=== PATIENT | male | born 1960 | race Caucasian/White ===

== ENCOUNTER 2023-09-25 09:15 | Outpatient (OUT) | payer OTHER, SELFPAY ==
--- OUTSIDE RECORDS SUMMARY | 2023-09-25 09:30 | XMS_ITS | CCD ---
Author Organization [facility] CliniSyoh Care Team Providers Care Floor Surfacer Name Role Phone PHYSICIAN, DEFAULT Unavailable Unavailable PHYSICIAN, DEFAULT Unavailable Unavailable HOY, MICHAEL Unavailable Unavailable PHYSICIAN, DEFAULT Unavailable Unavailable PHYSICIAN, DEFAULT Unavailable Unavailable HOY, MICHAEL Unavailable Unavailable DAKOTA, LOLA E Unavailable Unavailable HOY, MICHAEL Unavailable Unavailable DAKOTA, LOLA E Unavailable Unavailable HOY, MICHAEL Unavailable Unavailable HOY, DR RODRIGUEZ Admitting Unavailable HOY, DR RODRIGUEZ Attending Unavailable HOY, DR RODRIGUEZ Consulting Unavailable HOY, DR RODRIGUEZ Primary Care Unavailable HOY, DR RODRIGUEZ Primary Care Unavailable HOY, DR RODRIGUEZ Admitting Unavailable HOY, DR RODRIGUEZ Attending Unavailable HOY, DR RODRIGUEZ Consulting Unavailable REQUEST, DR HERBERT LISTED Attending Unavaila ble REQUEST, DR HERBERT LISTED Consulting Unavaila ble REQUEST, DR HERBERT LISTED Admitting Unavaila ble HOY, DR RODRIGUEZ Primary Care Unavailable SIGIFREDO CHRISTENSEN Attending Unavailable SIGIFREDO CHRISTENSEN Consulting Unavailable SIGIFREDO CHRISTENSEN Admitting Unavailable HOY, DR RODRIGUEZ Primary Care Unavailable MOUKARBEL, DR AKBAR Admitting Unavailable MOUKARBEL, DR AKBAR Attending Unavailable HOY, DR RODRIGUEZ Primary Care Unavailable HOY, DR RODRIGUEZ Admitting Unavailable HOY, DR RODRIGUEZ Attending Unavailable HOY, DR RODRIGUEZ Primary Care Unavailable Allergies Allergy Classification Reported Allergen(s) Allergy Type Date of Onset Reaction(s) Facility (1 source) acetaminophen Drug Allergy 08-15-2009 [facility] Repository (2 sources) Penicillins Drug allergy (disorder) 08-15-2009 [facility] Repository (1 source) Acetaminophen Drug Allergy 01-22-2015 [facility] Repository Problems Active Problems Problem Classification Problem Date Documented Da te Episodic/Chronic Unclassified (1 source) Unknown / UNK(Unknown) Onset: 09-22-2016 Past or Other Problems Problem Classification Problem Date Documented Da te Episodic/Chronic Immunizations and screening for infectious disease (4 sources) Contact with and (suspected) exposure to other viral communicable diseases; Translations: [CONTCT EXPS OTH VIRL COMMUNICABL DZ] Onset: 12-26-2019 Episodic Nonspecific chest pain (1 source) Chest pain, unspecified; Translations: [CHEST PAIN UNSPECIFIED] Onset: 12-29-2019 Episodic Unclassified (1 source) E78.5 I10 Z01.818 Onset: 09-23-2016 Results Test Name Value Interpretation Reference Range Facility GLYCOHEMOGLOBIN A1Con 2020 ADA RECOMMENDATION ADA THERAPEUTIC TARG ET 6.0 - 7.0 ACTION SUGGESTED > 7.0 Normal [facility] Comment on above: Performed By: #### A 1C #### [facility] [address] [place] [address] Dr. Therese Loera Glucose [Mass/Vol] 131 mg/dL Normal [facility] Comment on above: Performed By: #### A 1C #### [facility] [address] [place] [address] Dr. Therese Loera HbA1c (Bld) [Mass fraction] 6.2 % Critically high <=6.0 [facility] Comment on above: Performed By: #### A 1C #### [facility] [address] [place] [address] Dr. Therese Loera LIPID PROFILEon 11-05-2020 CHOL-HDL RATIO NORM SEE BELOW Normal [facility] Comment on above: Result Comment: 3.3 - 4.4 LOW RISK 4.4 - 7.1 AVERAGE RISK 7.1 - 11.0 MODERATE RISK >11.0 HIGH RISK Performed By: #### L IPID #### [facility] [address] [place] [address] Dr. Therese Loera Cholesterol [Mass/Vol] 148 mg/dL Normal <=200 [facility] Comment on above: Performed By: #### L IPID #### [facility] [address] [address] [address] Therese Loera Cholesterol in HDL [Mass/Vol] 42 mg/dL Normal [facility] Comment on above: Performed By: #### L IPID #### [facility] [address] [address] [address] Therese Loera Cholesterol in LDL [Mass/Vol] 89.8 mg/dL Normal [facility] Comment on above: Performed By: #### L IPID #### [facility] [address] [address] [address] Therese Loera Cholesterol.total/Ch olesterol in HDL [Mass ratio] 3.5 {ratio} Normal [facility] Comment on above: Performed By: #### L IPID #### [facility] [address] [address] [address] Therese Loera HDL NORMAL > or = 60 mg/dl - LO W CARDIOVASCULAR RISK <40 mg/dl - HIGH CARDIOVASCULAR RISK Normal [facility] Comment on above: Performed By: #### L IPID #### [facility] [address] [place] [address] Dr. Therese Loera LDL CALC NORMAL SEE BELOW Normal [facility] Comment on above: Result Comment: <100 mg/dl OPTIMAL 100 - 129 mg/dl NEAR OR ABOVE OPTIMAL 130 - 159 mg/dl BORDERLINE HIGH 160 - 189 mg/dl HIGH >190 mg/dl VERY HIGH Performed By: #### L IPID #### [facility] [address] [address] [address] Therese Loera Triglyceride [Mass/Vol] 81 mg/dL Normal <=150 [facility] Comment on above: Performed By: #### L IPID #### [facility] [address] [place] [address] Dr. Therese Loera VLDL CALC 16.2 mg/dL Normal [facility] Comment on above: Performed By: #### L IPID #### [facility] [address] [place] [address] Dr. Therese Loera COVID-19 PCRon 12-28-2019 SARS-CoV-2 (COVID-19) RNA KOJO+probe Ql (Unsp spec) Not detected Normal Not Detected [facility] Comment on above: Result Comment: This nucleic acid amplification test was developed and its performance characteristics determined by [employer]. Nucleic acid amplification tests include PCR and TMA. This test has not been FDA cleared or approved. This test has been authorized by FDA under an Emergency Use Authorization (EUA). This test is only authorized for the duration of time the declaration that circumstances exist justifying the authorization of the emergency use of in vitro diagnostic tests for detection of SARS-CoV-2 virus and/or diagnosis of COVID-19 infection under section 564(b)(1) of the Act, 21 U.S.C. 360bbb-3(b) (1), unless the authorization is terminated or revoked sooner. When diagnostic testing is negative, the possibility of a false negative result should be considered in the context of a patient's recent exposures and the presence of clinical signs and symptoms consistent with COVID-19. An individual without symptoms of COVID-19 and who is not shedding SARS-CoV-2 virus would expect to have a negative (not detected) result in this assay. Performed By: #### C VDPCR #### [facility] [address] [place] [address] Roberto Laura Coding Summary.on 11-11-2019 Coding Summary. CODING DATE: 11/11/2019 FINAL [facility] STATUS: Home (Routine DC) PAYOR: [facility] [place] ADMIT DX: REASON FOR VISIT DX: Z01.812 Encounter for preprocedural laboratory examination FINAL DX: PRINCIPAL: Z01.812 Encounter for preprocedural laboratory examination SECONDARY: Z11.59 Encounter for screening for other viral diseases PYMT PROC APC STAT DESCRIPTION DOCTOR NAME DATE NOTE: The code number assigned matches the documented diagnosis and / or procedure in the patient's chart. However, the narrative phrase printed from the coding software may appear abbreviated, or result in slightly different terminology. Coded By: Sheyla Appiah CphT Date Saved: 11/11/2019 03:57 pm Normal [facility] Coding Summary.on 10-28-2019 Coding Summary. CODING DATE: 10/28/2019 FINAL [facility] STATUS: Home (Routine DC) PAYOR: [facility] [place] APC DESCRIPTION 5311 Level 1 Lower GI Procedures ADMIT DX: REASON FOR VISIT DX: Z12.11 Encounter for screening for malignant neoplasm of colon FINAL DX: PRINCIPAL: Z12.11 Encounter for screening for malignant neoplasm of colon SECONDARY: I25.10 Atherosclerotic heart disease of [place] coronary artery without angina pectoris Z79.82 shelter (current) use of aspirin PYMT PROC APC STAT DESCRIPTION DOCTOR NAME DATE 59793 5311 T Colonoscopy, flexible; Manish TINAJERO MD 10/21/2019 diagnostic, including collection of specimen(s) by brushing or washing, when performed (separate procedure) 09681 Anesthesia for lower Anne Jr. Macario DEVLIN 10/21/2019 intestinal endoscopic procedures, endoscope introduced distal to duodenum; screening colonoscopy NOTE: The code number assigned matches the documented diagnosis and / or procedure in the patient's chart. However, the narrative phrase printed from the coding software may appear abbreviated, or result in slightly different terminology. Revised Coded By: Maria Dolores Alba Revised Date Saved: 10/28/2019 12:57 pm [facility] IntraOperative Documentson 0 10-27-2019 IntraOperative Documents [id number]. 00CD:127 [facility] Postoperative Documentson Postoperative Documents [id number]#1. 00CD:127 [facility] Main OR Intraoperative Recor don 10-25-2019 Main OR Intraoperative Record IntraOp Document Type FT Summary Primary Physician: Manish TINAJERO MD Finalized Date/Time: 10/25/19 07:07:35 Pt. Name: FORD ROMEO/Sex: 1960 Male Med Rec #: [id number] Physician: Manish TINAJERO MD Financial #: [id number] Pt. Type: O Room/Bed: / Admit/Disch: 10/21/19 09:20:40 - 10/21/19 23:59:59 Institution: Case Times FT Entry 1 Patient Times In Room 10/21/19 10:32:00 Out Room 10/21/19 10:58:00 Procedure Times Start 10/21/19 10:38:00 Stop 10/21/19 10:56:00 Anesthesia Times Start 10/21/19 10:32:00 Stop 10/21/19 10:58:00 Time at [place] 10/21/19 10:49:00 Last Modified By: Joanna MARTINES, Jo Galvin 10/21/19 10:58:28 General Comments: 10/25/2019 Chart opened to aly and send charges F Jack CORDON Case Attendance FT Entry 1 Entry 2 Entry 3 Case Attendee Leslie Quevedo MD, Manish Marshall RN, Jo Galvin Role Performed Anesthesiologist Surgeon - Primary Elevator Repairer Apprentice - Primary Supervisor Calibration Time In 10/21/19 10:32:00 10/21/19 10:32:00 10/21/19 10:32:00 Time Out 10/21/19 10:58:00 10/21/19 10:58:00 10/21/19 10:58:00 Procedure COLONOSCOPY(.) COLONOSCOPY(.) COLONOSCOPY(.) Comments Dr. Anne supervising Dr. Hinson supervising procedure. procedure. Last Modified By: Joanna RN, Jo Marshall RN, Jo Jarquin RN 10/21/19 10:58:29 10/21/19 10:58:29 10/21/19 10:58:29 Entry 4 Case Attendee Eloisa Villalpando CST Role Performed Scrub - Primary Time In 10/21/19 10:32:00 Time Out 10/21/19 10:58:00 Procedure COLONOSCOPY(.) Comments Last Modified By: Jo Marshall RN 10/21/19 10:58:29 Perioperative Protocols FT Pre-Care Text: Implements protective measures prior to operative or invasive procedure, confirms identity before the operative or invasive procedure, verifies operative procedure, surgical site, and laterality Entry 1 Procedure(s) COLONOSCOPY(.) Patient Identity Birthday, ID Band Verified (select at Check, Patient least 2): Participation Consents / H and P Anesthesia Consent, Operative Site N/A Verified HandP, Surgery/Procedure Marking Verified Consent Surgical Site No Laterality Verified n/a Verified Procedure Verified Yes Correct Patient Yes Position Verified Availability Equipment, Medication Prep Dry n/a Verified (If Applicable) PreOp Antibiotic No Time Out Leslie Quevedo, Given Participants GRABIEL MAHONEY, Joanna Fields RN, Irasema Mercer CST, Kimberly A Time Out Complete 10/21/19 10:35:00 Outcomes Met? Yes Last Modified By: Jo Marshall RN 10/21/19 10:37:14 Post-Care Text: The patient is free from signs and symptoms of injury caused by extraneous objects Allergy Information FT Pre-Care Text: Verifies allergies Entry 1 Allergies Reviewed? Yes Allergies Reviewed Self/Patient With Outcomes Met? Yes Last Modified By: Jo Marshall RN 10/21/19 10:38:28 Post-Care Text: The patient received appropriate medication(s) safely administered during the perioperative period Surgical Procedures FT Entry 1 Procedure Description Procedure COLONOSCOPY Modifiers . Surgeon Description Colonoscopy Primary Procedure Yes Primary Surgeon Manish TINAJERO MD 10/21/19 10:38:00 Stop 10/21/19 10:56:00 Anesthesia Type General Surgical Service General Wound Class 2 - Clean-Contaminated Last Modified By: Jo Marshall RN 10/21/19 10:56:13 General Case Data FT Pre-Care Text: Classifies surgical wound, implements aseptic technique, initiates traffic control Entry 1 Case Information OR ENDO 2 FT Case Level Level 2 Wound Class 2 - Clean-Contaminated Specialty General ASA Class 3 Preop Diagnosis SCREENING Postop Same As Preop No Postop Diagnosis Normal colonoscopy Outcomes Met? Yes Last Modified By: Jo Marshall RN 10/21/19 10:56:30 Post-Care Text: The patient is free from signs and symptoms of infection Skin Assessment (Pre Procedure) FT Pre-Care Text: Implements protective measures to prevent skin/ tissue injury due to thermal or mechanical sources Evaluates for signs and symptoms of physical injury to skin and tissue Entry 1 Skin Integrity Intact, [place], Warm, and Skin Abnormality No Dry Outcomes Met? Yes Last Modified By: Jo Marshall RN 10/21/19 10:38:58 Post-Care Text: The patient is free from signs and symptoms of injury caused by extraneous objects Patient Positioning FT Pre-Care Text: Identifies physical alterations that require additional precautions for procedure-specific positioning, verifies presence of prosthetics or corrective devices, positions the patient, evaluates the patient for signs and symptoms of injury as a result of positioning Entry 1 Procedure COLONOSCOPY(.) Body Position Lateral, right side up Feet Uncrossed? Yes Left Arm Position Resting at Side Right Arm Position Resting at Side Left Leg Position Extended Right Leg Position Extended Positioning Device Safety Strap, Pillow Unde (more content not included)... Normal [facility] Colonoscopy Procedure Report on 10-21-2019 Colonoscopy Procedure Report Date of Surgery: 10/21/2019 SURGEON: Manish Tinajero M.D. PREOPERATIVE DIAGNOSIS: Colorectal screening POSTOPERATIVE DIAGNOSIS: Redundant colon but normal OPERATION: Colonoscopy to cecum ANESTHESIA: Monitored anesthesia care ESTIMATED BLOOD LOSS: Zero INDICATIONS: The patient is a 59-year-old male who presents for colorectal screening. Indications, risks, benefits, alternatives of proceeding with colonoscopy were explained extensively to the patient including risks of bleeding, colon perforation or anesthetic complications. All of his questions were answered. Informed consent was obtained. PROCEDURE: The patient was brought to the Operating Room and placed in the left lateral decubitus position. Monitored anesthesia care was provided. Rectal examination was performed which revealed no masses or blood. The scope was inserted into the anal canal under direct visualization it was advanced. With the aid of abdominal compression and positional changes, it was advanced to the cecum where cecal markings were clearly identified. There was noted to be a good prep with some liquid stool throughout the colon that was partially irrigated clear. Upon withdrawal of the scope, mucosal surfaces were carefully examined. There was noted to be redundancy of the colon with spasm. No mass lesions or polyps. No inflammatory changes or ulcerations. No significant diverticulosis. The scope was retroflexed in the anal canal. There was noted to be some prominent rectal veins. No significant hemorrhoidal disease. The scope was then withdrawn. The patient tolerated the procedure well and was sent to Recovery Room in good condition. Manish Tinajero M.D. gls Dictated: 10/21/2019 #[id number] Typed: 10/21/2019 #[id number] cc: Nargis Yost M.D. [facility] Consenton 10-21-2019 Consent [id number]. 00CD:127 [facility] Consent for Treatmenton Consent for Treatment [id number] 0CD:127 [facility] Discharge Instructionson Discharge Instructions [id number]. 00CD:127 [facility] Inpatient Patient Summaryon 10-21-2019 Inpatient Patient Summary [address] [address] [facility] Clinical Discharge Instructions PERSON INFORMATION Name: FORD ROMEO [facility]#:[id number] PHYSICIANS Admitting Physician: Manish TINAJERO MD Attending Physician: Manish TINAJERO MD PCP: David MAHONEY, Michael Discharge Diagnosis: Encounter for screening for colorectal malignant neoplasm Comment: PATIENT EDUCATION INFORMATION Instructions: Medication Leaflets: Follow up: With: Address: When: Manish TINAJERO [address] [place] [address], [address], [facility] [address] [place] [address] Business (1) , only if needed MEDICATION LIST Medications to Continue with No Changes Other Medications aspirin (aspirin 81 mg Oral EC Tab) 1 Tablets By Mouth every day. atorvastatin (atorvastatin 40 mg Tab) 1 Tablets By Mouth every day. azelastine nasal (azelastine nasal 137 mcg/inh spray) 2 Sprays Nasal Inhalation 2 times a day. in each nostril. fluticasone nasal (Flonase 0.05 mg/inh nasal spray) 1 Sprays Nasal Inhalation 2 times a day. in each nostril. meloxicam (meloxicam 15 mg oral tablet) 1 Tablets By Mouth every day. nitroglycerin (NitroStat 0.4 mg Tab) 1 Tablets Sublingual every 5 minutes as needed Chest pain. olmesartan (olmesartan 40 mg Tab) 1 Tablets By Mouth every day. Comment: Normal [facility] IntraOperative Documentson 0 10-21-2019 IntraOperative Documents [id number]. 00CD:127 Normal [facility] IntraOperative Documents [id number]. 00CD:127 Normal [facility] Main OR PACU I Recordon Main OR PACU I Record PACU Phase I Document Type FT Summary Primary Physician: Manish TINAJERO MD Finalized Date/Time: 10/21/19 15:32:50 Pt. Name: VIRGIEJACKY FORD Concepcion /Sex: 1960 Male Med Rec #: [id number] Physician: Manish TINAJERO MD Financial #: [id number] Pt. Type: O Room/Bed: / Admit/Disch: 10/21/19 09:20:40 - Institution: Case Times PACU I FT Pre-Care Text: Identifies barriers to communication and implements measures to provide psychological support Develops individualized plan of care, and ensures continuity of care Maintains patient's dignity and privacy, and maintains patient confidentiality Identifies and reports philosophical, cultural, and spiritual beliefs and values Identifies individual values and wishes concerning care Implements aseptic technique, and administers prescribed antibiotic therapy and immunizing agents as ordered Evaluates postoperative tissue perfusion Implements thermoregulation measures, and monitors body temperature Evaluates postoperative respiratory status Evaluates postoperative cardiac status Evaluates postoperative neurological status Assesses pain control, collaborated in initiating patient-controlled analgesia and implements alternative methods of pain control Verifies allergies, administers prescribed medications and solutions, evaluates response to medications Entry 1 In PACU I 10/21/19 11:00:00 Discharge from PACU 10/21/19 11:30:00 I Outcomes Met? Yes Last Modified By: Jenny Jeffery RN 10/21/19 15:30:21 Post-Care Text: The patient demonstrates knowledge of the expected response to the operative or invasive procedure The patient's care is consistent with the individualized perioperative plan of care The patient's right to privacy is maintained The patient's value system, lifestyle, ethnicity, and culture are considered, respected, and incorporated into the perioperative plan of care The patient participates in decisions affecting his or her perioperative plan of care The patient is free from signs and symptoms of infection The patient has wound/tissue perfusion consistent with or improved from baseline levels established preoperatively The patient is at or returning to normothermia at the conclusion of the immediate postoperative period The patient's respiratory function is consistent with or improved from baseline levels established preoperatively The patient's cardiovascular status is consistent with or improved from baseline levels established preoperatively The patient's cardiovascular status is consistent with or improved from baseline levels established preoperatively The patient demonstrates and/or reports adequate pain control throughout the perioperative period The patient received appropriate medication(s), safely administered during the perioperative period Acuity Level PACU I FT Entry 1 Start Time 10/21/19 11:00:00 Stop Time 10/21/19 11:30:00 Acuity Level Acuity Level I Last Modified By: Jenny Jeffery RN 10/21/19 15:30:37 Finalized By: Jenny Jeffery RN Document Signatures Signed By: Jenny Jeffery RN 10/21/19 15:30 Jenny Jeffery RN 10/21/19 15:31 Jenny Jeffery RN 10/21/19 15:30 Jenny Jeffery RN 10/21/19 15:32 Normal [facility] Main OR Preoperative Recordo n 10-21-2019 Main OR Preoperative Record Holding Area Document Type FT Summary Primary Physician: Manish TINAJERO MD Finalized Date/Time: 10/21/19 09:51:42 Pt. Name: DAR ROMEOSAMEERO.B./Sex: 1960 Male Med Rec #: [id number] Physician: Manish TINAJERO MD Financial #: [id number] Pt. Type: O Room/Bed: / Admit/Disch: 10/21/19 09:20:40 - Institution: Case Times Holding FT Pre-Care Text: Verifies consent for planned procedure, identifies individual values and wishes concerning care, includes family members in perioperative teaching Secures patient's records' belongings, and valuables, maintains patient's dignity and privacy, and maintains patient confidentiality Entry 1 In Holding 10/21/19 09:22:00 Outcomes Met? Yes Last Modified By: Jo Marshall RN 10/21/19 09:22:54 Post-Care Text: The patient participates in decisions affecting his or her perioperative plan of care The patient's right to privacy is maintained Surgery Checklist FT Entry 1 Patient Birthday, ID Band Procedure History and Physical, Identification: Check, Patient Verification: Surgical Consent, With Participation Patient NPO after Midnight: Yes Results Reviewed n/a Comments: Personal Items: Jewelry Personal Items Watch, metal in neck Comment: Complaints of Pain: No Pain Comment: Denies Operative Site n/a Availability Equipment Marking: Verified: Does Patient Smoke No Patient states Yes Comment - Adult Ayesha postop adult Supervision supervision available Case Cancelled in No Holding Area see comments below for reason Last Modified By: Jo Marshall RN 10/21/19 09:32:53 General Comments: Pt completed prep yesterday and remained NPO since midnight/REMIRN Finalized By: Jo Marshall RN Document Signatures Signed By: Jo Marshall RN 10/21/19 09:51 Normal [facility] Monitor Recordon 10-21-2019 Monitor Record [id number]. 00CD:127 Normal [facility] Outpatient Surgery Discharge Instructionon 10-21-2019 Outpatient Surgery Discharge Instruction [address] [place] [id number] Patient Discharge Instructions PERSON INFORMATION Name: FORD ROMEO Date of : 1960 Current Date: 10/21/2019 11:01:01 PHYSICIANS Admitting Physician: Manish TINAJERO MD Discharge Diagnosis: Encounter for screening for colorectal malignant neoplasm FORD ROMEO has been given the following list of follow-up instructions, prescriptions, and patient education materials: PATIENT FOLLOW-UP INFORMATION Diet: Regular Discharge Activity: Resume normal activities in 24 hours, Arrange for a responsible adult supervision for 24 hours Discharge Restrictions: No driving for 24 hrs, Do not make important decisions for 24 hours, Do not drink alcoholic beverages for 24 hours Call Your Doctor For: Persistent or heavy bleeding, Temperature above 101.5 degrees, Redness, swelling, or pus at operative site, Severe pain at the operative site, Persistent vomiting IF UNABLE TO CONTACT YOUR PHYSICIAN AND YOU FEEL IT IS AN EMERGENCY, GO TO THE NEAREST EMERGENCY ROOM OR CALL 911 [address] WALTER J, have received the attached patient education materials/instructions and have verbalized understanding: May we do a follow up call? Yes No I was present when discharge instructions were given Patient Signature Date Clinican/Nurse Signature ___ Date Follow up: With: Address: When: Manish Nair, [address], [facility] [address] [place] [address] Business (1) , only if needed Pharmacy Information: Thank you for choosing [facility] HERE ARE THE MEDICATION CHANGES THAT OCCURRED DURING YOUR HOSPITAL STAY Medications to Continue with No Changes Other Medications aspirin (aspirin 81 mg Oral EC Tab) 1 Tablets By Mouth every day. atorvastatin (atorvastatin 40 mg Tab) 1 Tablets By Mouth every day. azelastine nasal (azelastine nasal 137 mcg/inh spray) 2 Sprays Nasal Inhalation 2 times a day. in each nostril. fluticasone nasal (Flonase 0.05 mg/inh nasal spray) 1 Sprays Nasal Inhalation 2 times a day. in each nostril. meloxicam (meloxicam 15 mg oral tablet) 1 Tablets By Mouth every day. nitroglycerin (NitroStat 0.4 mg Tab) 1 Tablets Sublingual every 5 minutes as needed Chest pain. olmesartan (olmesartan 40 mg Tab) 1 Tablets By Mouth every day. PATIENT EDUCATION INFORMATION Instructions: Normal [facility] Patient Education - Texton 0 10-21-2019 Patient Education - Text [facility] Progress Note-Physicianon Progress Note-Physician Patient: FORD ROMEO Age: 59 years Sex: Male : 1960 Associated Diagnoses: None Author: Macario Anne Jr., DO Postoperative Information Post Operative Note: Post Anesthesia Care Unit. Anesthetic utilized: General. Health Status Allergies: Allergic Reactions (Selected) Severity Not Documented Penicillin- Rash. Tylenol- Edema around eye. Problem list: All Problems Elevated blood pressure reading without diagnosis of hypertension / SNOMED CT 9303235294 / Confirmed Impotence / SNOMED CT 3724895737 / Confirmed Diabetes mellitus type 2 / SNOMED CT 171707631 / Confirmed Coronary artery disease / SNOMED CT 9704017477 / Confirmed Osteoarthritis of hip / SNOMED CT 456837271 / Confirmed Screening for malignant neoplasm of colon / SNOMED CT 499684146 / Confirmed Rectal bleeding / SNOMED CT 234328748 / Confirmed Depression / SNOMED CT 90125229 / Confirmed Eczema / SNOMED CT 64254707 / Confirmed Occult blood in stools / SNOMED CT 51877605 / Confirmed Physical Examination Vital Signs 10/21/2019 11:30 EDT Temperature Temporal Artery 36.2 DegC LOW Heart Rate Monitored 54 bpm LOW Respiratory Rate Monitored 13 br/min Systolic Blood Pressure 150 mmHg HI Diastolic Blood Pressure 93 mmHg HI Blood Pressure Location Left arm SpO2 100 % 10/21/2019 11:15 EDT Heart Rate Monitored 58 bpm LOW Respiratory Rate Monitored 14 br/min Systolic Blood Pressure 133 mmHg Diastolic Blood Pressure 72 mmHg Blood Pressure Location Left arm SpO2 99 % 10/21/2019 11:10 EDT Heart Rate Monitored 63 bpm Respiratory Rate Monitored 16 br/min Systolic Blood Pressure 119 mmHg Diastolic Blood Pressure 73 mmHg Blood Pressure Location Left arm SpO2 97 % 10/21/2019 11:05 EDT Heart Rate Monitored 61 bpm Respiratory Rate Monitored 13 br/min Systolic Blood Pressure 145 mmHg HI Diastolic Blood Pressure 60 mmHg Blood Pressure Location Left arm SpO2 96 % 10/21/2019 11:00 EDT Temperature Temporal Artery 36.0 DegC LOW Heart Rate Monitored 66 bpm Respiratory Rate Monitored 16 br/min Systolic Blood Pressure 147 mmHg HI Diastolic Blood Pressure 66 mmHg Blood Pressure Location Left arm SpO2 96 % Pain assessment: Controlled. General: Alert and oriented, No acute distress, No nausea. Adequate hydration.. Respiratory: Adequate air exchange.. Cardiovascular: stable. Neurologic: Normal sensory. Review / Management Condition: Stable. Assessment Anesthetic outcome No anesthetic complications noted. Plan Transfer/ Discharge: Condition stable. Normal [facility] Comment on above: Result Comment: Elec tronically Signed By: Macario Anne Jr., DO\.br\Date and Time Signed: 10/21/19 12:27 EDT Progress Note-Physician Patient: FORD ROMEO Age: 59 years Sex: Male : 1960 Associated Diagnoses: None Author: Macario Anne Jr., DO Preoperative Information Anesthesia history: Patient History: No prior problems.. Re-eval prior to induction: Inital eval reviewed: No significant interval change. Anesthesia results Review of Systems Constitutional: Negative except as documented in history of present illness. Cardiovascular: Negative except as documented in history of present illness. Respiratory: Negative. Health Status Allergies: Allergic Reactions (Selected) Severity Not Documented Penicillin- Rash. Tylenol- Edema around eye., Allergies (2) Active Reaction penicillin Rash Tylenol Edema around eye Current medications: (Selected) Inpatient Medications Ordered Lactated Ringers IV Merlyn 1000 mL 1,000 mL: 1,000 mL, IV, 100 mL/hr, Routine, Start date 10/21/19 7:42:00 EDT, 10 hour(s), Total volume (mL): 1,000, 87.1 kg, 2.07, m2 Documented Medications Documented Flonase 0.05 mg/inh nasal spray: 1 spray(s), Nasal, BID, Refill(s) 0, in each nostril, Allergy symptoms NitroStat 0.4 mg Tab: 0.4 mg = 1 tab(s), SubLingual, q5min, PRN Chest pain aspirin 81 mg Oral EC Tab: 81 mg = 1 tab(s), Oral, Daily, Refills(s) 0, Prophylaxis atorvastatin 40 mg Tab: 40 mg = 1 tab(s), Oral, Daily, Refills(s) 0, High cholesterol azelastine nasal 137 mcg/inh spray: 2 spray(s), Nasal, BID, Refill(s) 0, in each nostril, Allergy symptoms meloxicam 15 mg oral tablet: 15 mg = 1 tab(s), Oral, Daily, Pain olmesartan 40 mg Tab: 40 mg = 1 tab(s), Oral, Daily, High blood pressure Histories Past Medical History: No active or resolved past medical history items have been selected or recorded. Family History: Heart failure Father Comments: 09/30/2019 9:24 EDT - Elayne Cannon LPN age 45 Procedure history: Placement of stent in cardiac conduit ([id number]) on 02/16/2009 at 48 Years. Cervical discectomy (477582642). Colonoscopy (712743772). Hip replacement ([id number]). Lumbar discectomy (424180902). Social History Social & Psychosocial Habits Alcohol 09/13/2018 Risk Assessment: Denies Alcohol Use Substance Abuse 09/13/2018 Risk Assessment: Denies Substance Abuse Tobacco 09/30/2019 Tobacco Use: Never (less than 100 in l . Physical Examination Respiratory: Lungs are clear to auscultation. Cardiovascular: Regular rhythm. Plan [employer] Anesthesi[employer] (ASA) physical status classification: Class III. Anesthetic Preoperative Plan Anesthesia: General. . Anesthetic plan, risks, benefits, and alternatives discussed with the patient and/or family. Patient verbalized understanding. Normal [facility] Comment on above: Result Comment: Elec tronically Signed By: Macario Anne Jr., DO\.br\Date and Time Signed: 10/21/19 07:42 EDT Priority Order-Bessy 2019 Priority Order-STAT Comment Invalid Interpretation Code [facility] Comment on above: Result Comment: Rece ived Performed at: [facility] [address] [place] [id number] MD Patito Pierre Performed By: #### S ARS-CoV-2, KOJO, [id number] ####[facility] [address] [place] [address] SARS-CoV-2, NAAon 10-15-2019 SARS-CoV-2 (COVID-19) RNA KOJO+probe Ql (Resp) Not detected Invalid Interpretation Code Not Detected [facility] Comment on above: Result Comment: This test was developed and its performance characteristics determined by [facility]. This test has not been FDA cleared or approved. This test has been authorized by FDA under an Emergency Use Authorization (EUA). This test is only authorized for the duration of time the declaration that circumstances exist justifying the authorization of the emergency use of in vitro diagnostic tests for detection of SARS-CoV-2 virus and/or diagnosis of COVID-19 infection under section 564(b)(1) of the Act, 21 U.S.C. 360bbb-3(b)(1), unless the authorization is terminated or revoked sooner. When diagnostic testing is negative, the possibility of a false negative result should be considered in the context of a patient's recent exposures and the presence of clinical signs and symptoms consistent with COVID-19. An individual without symptoms of COVID-19 and who is not shedding SARS-CoV-2 virus would expect to have a negative (not detected) result in this assay. Performed at: [facility] [address] [facility] [place] [id number] MD Patito Pierre Performed By: #### S ARS-CoV-2, KOJO, [id number] ####[facility] [address] [place] [address] Consenton 10-04-2019 Consent [id number]#1.0 0CD:127 [facility] Facesheeton 10-03-2019 Facesheet [id number]#1.0 0CD:127 [facility] Physician Orderon 10-03-2019 Physician Order [id number]#1.0 0CD:127 [facility] Provider Letter FTon 10-02 Provider Letter [facility] Michael Hernandez [address] [place] [address] Re: FORD ROMEO Date of : 1960 Thank you for your referral of Ford Romeo who was seen on consultation on 09/30/2019 for screening colonoscopy. I have enclosed my consultation notes for your review. Sincerely, Manish Tinajero MD General Surgery [facility] Ambulatory Clinical Summaryo n 09-30-2019 Ambulatory Clinical Summary {[id number]}CD:[id number] [facility] Patient Educationon 09-30-19 20 Patient Education Exercise to Lose Weight Exercise and a healthy diet may help you lose weight. Your doctor may suggest specific exercises. EXERCISE IDEAS AND TIPS ? Choose low-cost things you enjoy doing, such as walking, bicycling, or exercising to workout videos. ? Take stairs instead of the elevator. ? Walk during your lunch break. ? Park your car further away from work or school. ? Go to a gym or an exercise class. ? Start with 5 to 10 minutes of exercise each day. Build up to 30 minutes of exercise 4 to 6 days a week. ? Wear shoes with good support and comfortable clothes. ? Stretch before and after working out. ? Work out until you breathe harder and your heart beats faster. ? Drink extra water when you exercise. ? Do not do so much that you hurt yourself, feel dizzy, or get very short of breath. Exercises that burn about 150 calories: ? Running 1 ? miles in 15 minutes. ? Playing volleyball for 45 to 60 minutes. ? Washing and waxing a car for 45 to 60 minutes. ? Playing touch football for 45 minutes. ? Walking 1 ? miles in 35 minutes. ? Pushing a stroller 1 ? miles in 30 minutes. ? Playing basketball for 30 minutes. ? Raking leaves for 30 minutes. ? Bicycling 5 miles in 30 minutes. ? Walking 2 miles in 30 minutes. ? Dancing for 30 minutes. ? Shoveling snow for 15 minutes. ? Swimming laps for 20 minutes. ? Walking up stairs for 15 minutes. ? Bicycling 4 miles in 15 minutes. ? Gardening for 30 to 45 minutes. ? Jumping rope for 15 minutes. ? Washing windows or floors for 45 to 60 minutes. Document Released: 03/07/2011 Document Revised: 04/26/2012 Document Reviewed: 03/07/2011 ExitCare? Patient Information ?2013 [email or web address]. Normal [facility] Physician Referralon 020 Physician Referral [id number] 0CD:127 Normal [facility] Basic Metabolic Panelon 10-18 BUN/Creatinine Ratio 15 mg/mg Normal [facility] Calcium 8.6 mg/dL Normal 8.5-10.6 [facility] Chloride 106 mmol/L Normal 98-107 [facility] CO2 30 mmol/L Normal 21-32 [facility] Creatinine 0.96 mg/dL Normal 0.55-1.30 [facility] Glucose mass conc 160 mg/dL High 74-106 [facility] Potassium molar conc 4.5 mmol/L Normal 3.5-5.1 [facility] Sodium 141 mmol/L Normal 136-145 [facility] Urea nitrogen 14 mg/dL Normal 7-18 [facility] CBC with Differentialon 10-18 Basophils Auto #/vol (Bld) 0.0 thou/mcL Normal 0.0-0.1 [facility] Basophils/100 WBC Auto (Bld) 0.9 % Normal 0.2-1.4 [facility] Diff Method AUTOMATED DIFFERENTIAL Normal [facility] Eosinophils 0.1 thou/mcL Normal 0.0-0.5 [facility] Eosinophils/100 leukocytes 2.6 % Normal 0.6-7.9 [facility] Erythrocyte distribution width Auto Ratio (RBC) 13.6 % Normal 12.3-17.0 [facility] Erythrocytes (RBC) 4.56 x(10)6/mcL Normal 3.73-5.50 [facility] Hematocrit (HCT) 41.4 % Normal 33.3-45.7 [facility] Hemoglobin mass conc (Bld) 13.9 g/dL Normal 11.4-15.9 [facility] Lymphocytes 1.5 thou/mcL Normal 1.0-3.0 [facility] Lymphocytes/100 leukocytes 29.8 % Normal 16.0-43.5 [facility] MCH 30.5 Picograms Normal 24.3-33.2 [facility] MCHC mass conc (RBC) 33.5 g/dL Normal 32.5-35.8 [facility] MCV 90.8 fL Normal 73.7-95.5 [facility] Monocytes 0.3 thou/mcL Normal 0.3-1.0 [facility] Monocytes/100 leukocytes 5.7 % Normal 4.5-12.5 [facility] Neutrophils 3.0 thou/mcL Normal 1.8-7.8 [facility] Neutrophils/100 WBC Auto (Bld) 61.0 % Normal 43.0-76.6 [facility] Platelet mean volume (PMV) 8.1 fL Normal 7.5-11.2 [facility] Platelets 200 thou/mcL Normal 159-386 [facility] WBC (Leukocytes) 5.0 thou/mcL Normal 3.6-11.2 [facility] Partial Thromboplastin Time (aPTT)on 11-14-2016 aPTT 34 Sec Normal 24.4-37.5 [facility] Prothrombin Timeon 7 INR Coag RelTime (Bld) 1.0 {INR} Normal 0.8-1.2 [facility] Comment on above: Result Comment: IVY NG THE INDUCTION PHASE OF ORAL ANTICOAGULATION, THE INR MAY NOT REFLECT THE ANTICOAGULANT STATUS OF THE PATIENT. THERAPEUTIC RANGES FOR INR'S ARE: MOST CLINICAL SITUATIONS: INR 2.0-3.0 MECHANICAL PROSTHETIC VALVES: INR 2.5-3.5 CRITICAL: INR 5.0 Prothrombin time (PT) Coag time (PPP) 11.2 Sec Normal 9.4-12.5 [facility] Urinalysis with Microscopic Automaticon 11-14-2016 Bilirubin Urine Negative Normal NEG [facility] Nitrite Urine Negative Normal NEG [facility] Urine, clarity CLEAR Normal CLER [facility] Urine, color YELLOW Normal YEL [facility] Urine, glucose presence Negative Normal NEG [facility] Urine, hemoglobin presence Negative Normal NEG [facility] Urine, ketones presence Negative Normal NEG [facility] Urine, leukocytes in sedmiment Negative Normal NEG [facility] Urine, microscopic observation of sediment NONE SEEN Normal [facility] Urine, pH 5.5 [pH] Normal 5.0-7.5 [facility] Urine, protein Negative Normal NEG [facility] Urine, specific gravity >1.030 High 1.005-1.030 [facility] Urobilinogen Urine 0.2 mg/dL Normal 0.0-1.9 [facility] Basic Metabolic Panelon BUN/Creatinine Ratio 18 mg/mg Normal [facility] Calcium 9.0 mg/dL Normal 8.5-10.6 [facility] Chloride 104 mmol/L Normal 98-107 [facility] CO2 28 mmol/L Normal 21-32 [facility] Creatinine 0.91 mg/dL Normal 0.55-1.30 [facility] Glucose mass conc 102 mg/dL Normal 74-106 [facility] Potassium molar conc 4.9 mmol/L Normal 3.5-5.1 [facility] Sodium 143 mmol/L Normal 136-145 [facility] Urea nitrogen 16 mg/dL Normal 7-18 [facility] CBC with Differentialon 0 Basophils Auto #/vol (Bld) 0.1 thou/mcL Normal 0.0-0.1 [facility] Basophils/100 WBC Auto (Bld) 0.8 % Normal 0.2-1.4 [facility] Diff Method AUTOMATED DIFFERENTIAL Normal [facility] Eosinophils 0.1 thou/mcL Normal 0.0-0.5 [facility] Eosinophils/100 leukocytes 1.8 % Normal 0.6-7.9 [facility] Erythrocyte distribution width Auto Ratio (RBC) 13.5 % Normal 12.3-17.0 [facility] Erythrocytes (RBC) 5.42 x(10)6/mcL Normal 3.73-5.50 [facility] Hematocrit (HCT) 50.8 % High 33.3-45.7 [facility] Hemoglobin mass conc (Bld) 17.0 g/dL High 11.4-15.9 [facility] Lymphocytes 1.6 thou/mcL Normal 1.0-3.0 [facility] Lymphocytes/100 leukocytes 25.4 % Normal 16.0-43.5 [facility] MCH 31.4 Picograms Normal 24.3-33.2 [facility] MCHC mass conc (RBC) 33.5 g/dL Normal 32.5-35.8 [facility] MCV 93.8 fL Normal 73.7-95.5 [facility] Monocytes 0.4 thou/mcL Normal 0.3-1.0 [facility] Monocytes/100 leukocytes 6.3 % Normal 4.5-12.5 [facility] Neutrophils 4.2 thou/mcL Normal 1.8-7.8 [facility] Neutrophils/100 WBC Auto (Bld) 65.7 % Normal 43.0-76.6 [facility] Platelet mean volume (PMV) 8.8 fL Normal 7.5-11.2 [facility] Platelets 188 thou/mcL Normal 159-386 [facility] WBC (Leukocytes) 6.3 thou/mcL Normal 3.6-11.2 [facility] Partial Thromboplastin Time (aPTT)on 09-22-2016 aPTT 32 Sec Normal 24.4-37.5 [facility] Prothrombin Timeon 7 INR Coag RelTime (Bld) 1.0 {INR} Normal 0.8-1.2 [facility] Comment on above: Result Comment: IVY NG THE INDUCTION PHASE OF ORAL ANTICOAGULATION, THE INR MAY NOT REFLECT THE ANTICOAGULANT STATUS OF THE PATIENT. THERAPEUTIC RANGES FOR INR'S ARE: MOST CLINICAL SITUATIONS: INR 2.0-3.0 MECHANICAL PROSTHETIC VALVES: INR 2.5-3.5 CRITICAL: INR 5.0 Prothrombin time (PT) Coag time (PPP) 11.2 Sec Normal 9.4-12.5 [facility] Urinalysis with Microscopic Automaticon 09-22-2016 Bilirubin Urine Negative Normal NEG [facility] Nitrite Urine Negative Normal NEG [facility] Urine, clarity CLEAR Normal CLER [facility] Urine, color YELLOW Normal YEL [facility] Urine, glucose presence Negative Normal NEG [facility] Urine, hemoglobin presence Negative Normal NEG [facility] Urine, ketones presence Negative Normal NEG [facility] Urine, leukocytes in sedmiment Negative Normal NEG [facility] Urine, pH 6.0 [pH] Normal 5.0-7.5 [facility] Urine, protein Negative Normal NEG [facility] Urine, specific gravity 1.025 Normal 1.005-1.030 [facility] Urobilinogen Urine 0.2 mg/dL Normal 0.0-1.9 [facility] Encounters Encounter Date Encounter Type Care Provider Facility Start: 11-05-2020 End: 11-06-[address] MICHAEL HERNANDEZ Facility:[facility] Start: 09-12-[address] RAFFY MONTGOMERY [facility] ility:[facility] Start: 07-11-[address] MICHAEL HERNANDEZ Facility :[facility] Start: 06-13-2020 End: 06-14-2020 ambulatory SIGIFREDO CHRISTENSEN Facility:[facility] Start: 05-23-2020 End: 05-24-[address] HERBERT LISTED REQUEST Facility: Start: 12-26-2019 End: 12-27-[address] IMCHAEL HERNANDEZ Facility: Start: 12-04-2016 End: 12-05-2016 Ambulatory DEFAULT PHYSICIAN Facility:[facility] Start: 11-17-2016 End: 11-18-2016 Ambulatory DEFAULT PHYSICIAN Facility:[facility] Start: 11-15-2016 End: 11-15-2016 Ambulatory LOLA DUNCAN Facility:[facility] Start: 09-23-2016 End: 09-23-2016 Ambulatory LOLA DUNCAN Facility:[facility] Payers Date Payer Category Payer Unknown [id number] 1960 Unknown [id number] 2.16.84 [id number] 1960 Unknown [id number] .16.84 [id number] 1958 Self-pay 1958 Self-pay [id number] 1958 Unknown [id number] Unknown Unknown [id number] 2.16.84 [id number] Unknown [id number] 2.16.84 [id number] Unknown [id number] .16.84 [id number] Unknown [id number] .16.84 [id number] History and physical note 10-21-2019 Note Date & Type Note Facility 10-21-2019 Note [id number]#1.00CD:127 [facility] History and physical note 10-21-2019 Note Date & Type Note Facility 10-21-2019 Note Patient: DEEDEE ROMEO KAREN J Age: 59 years Sex: Male : 1960 Associated Diagnoses: None Author: Manish TINAJERO MD Subjective no changes to H & P [facility] Comment on above: Result Comment: Elec tronically Signed By: Manish TINAJERO MD\.br\Date and Time Signed: 10/21/19 10:21 EDT Clinical Note 09-30-2019 Note Date & Type Note Facility 09-30-2019 Note Chief Complaint referral for colonoscopy HPI Staff 59 year old male presents on consultation from Dr. Hernandez for screening colonoscopy. Denies abdominal pain, nausea or vomiting. Denies rectal pain. Intermittent rectal bleeding, primarily with straining. No change in stools. No recent weight loss. Last colonoscopy 25+ years ago. Reported normal per patient. No family history of colon cancer. History of Present Illness 59 yo male with h/o CAD, s/o cardiac stent in 2009; referred for colorectal screening; denies change in bms or abdominal complaints; reports rare BRBPR if strains with hard stool; no previous abdominal operations; last colonoscopy 25 years ago, reportedly wnl; on baby asa and meloxicam daily; no SBE prophylaxis; no fmhx of GI malignancy or IBD. Review of Systems PHQ Score Initial Depression Screen Score: 0 ROS - Provider Constitutional: no fever, no sweats, no weight loss. Eyes: yes glasses, no blurred vision, no visual loss. ENMT: no dentures, no hoarseness, no swallowing difficulties, no hearing loss, no ear infection(s), no nose bleeds. Cardiovascular: normal blood pressure, no chest pain, regular heartbeat, no heart murmur. Respiratory: no shortness of breath, no cough, no asthma, no wheezing. Gastrointestinal: no nausea, no vomiting, no diarrhea, no constipation, no blood in stool, no change in bowel habits, no abdominal pain, no hepatitis. Genitourinary: no kidney stones, no urine infection, no dysuria. Musculoskeletal: no pain, no weakness. Skin: no changing moles, no rash, no skin lumps. Neurologic: no seizures, no epilepsy, no headache. Psychiatric: no emotional or psychiatric problem. Heme/Lymph: no bleeding problems, no anemia, no blood clots, no transfusions. Allergy/Immunologic: no swollen lymph nodes/glands, no IV drug abuse. Other: Additional ROS info: Except as noted in the above Review of Systems and in the History of Present Illness, all other systems have been reviewed and are negative or noncontributory. Physical Exam Vitals & Measurements T: 37.0 ?C (Tympanic) HR: 68(Peripheral) RR: 16 BP: 132/72 HT: 177.8 cm HT: 177.8 cm WT: 87.08 kg WT: 87.1 kg BMI: 27.55 HEENT: normal conjunctiva, sclera clear, no scleral icterus, EOM intact, PERRLA, oral mucosa moist without lesions. Neck: trachea midline, no mass, symmetric, no thyromegaly or nodules, no adenopathy Respiratory: lungs CTA, respirations non labored. Cardiovascular: regular rate and rhythm, no murmur, no pedal edema or varicosities. Gastrointestinal: soft, non distended, no tenderness, no masses, no palpable hernias, diastasis recti no, no hepatosplenomegaly; normal bs Lymphatic: no cervical adenopathy, no axillary adenopathy, no inguinal adenopathy. Musculoskeletal: normal gait, digits and nails without infection, nodes, cyanosis, clubbing. Skin: no rashes, no lesions, no ulcers, no subcutaneous nodules, induration. Psychiatric/Neuro: oriented to time, place, person, judgement normal, affect appropriate for age, insight intact, no focal deficits. Tests: review of old records completed, Discussed surgical options, risks, and possible complications with patient. Assessment/Plan 1. Screening for malignant neoplasm of colon (Z12.11: Encounter for screening for malignant neoplasm of colon) plan colonoscopy under anesthesia, informed consent obtained. patient understands the risks associated with COVID-19, and the need for preoperative testing with self-isolation until the procedure. Follow-up No qualifying data available Patient Education Exercise to Lose Weight, [id number] Problem List/Past Medical History Ongoing Coronary artery disease Depression Diabetes mellitus type 2 Eczema Elevated blood pressure reading without diagnosis of hypertension Impotence Occult blood in stools Osteoarthritis of hip Rectal bleeding Screening for malignant neoplasm of colon Historical No qualifying data Procedure/Surgical History Placement of stent in cardiac conduit (02/16/2009), Cervical discectomy, Colonoscopy, Hip replacement, Lumbar discectomy. Medications aspirin 81 mg Oral EC Tab, 81 mg= 1 tab(s), Oral, Daily atorvastatin 40 mg Tab, 40 mg= 1 tab(s), Oral, Daily azelastine nasal 137 mcg/inh spray, 2 spray(s), Nasal, BID Flonase 0.05 mg/inh nasal spray, 1 spray(s), Nasal, BID meloxicam 15 mg oral tablet, 15 mg= 1 tab(s), Oral, Daily NitroStat 0.4 mg Tab, 0.4 mg= 1 tab(s), SubLingual, q5min, PRN olmesartan 40 mg Tab, 40 mg= 1 tab(s), Oral, Daily Allergies Tylenol (Edema around eye) penicillin (Rash) Social History Alcohol - Denies Alcohol Use, 09/13/2018 Substance Abuse - Denies Substance Abuse, 09/13/2018 Tobacco Never (less than 100 in lifetime) Tobacco Use:., 09/30/2019 Family History Heart failure: Father. [facility] Comment on above: Result Comment: Elec tronically Signed By: GRABIEL MAHONEY, Manish Wernerbr\Date and Time Signed: 09/30/19 09:43 EDT Summary Purpose Family History No Family History Records FoundNo Family History Records FoundNo Family History Records FoundNo Family History Records Found Advance Directives No Advanced Directives Records FoundNo Advanced Directives Records FoundNo Advanced Directives Records FoundNo Advanced Directives Records Found Additional Source Comments (unrecognized sect ion and content) No Status Records FoundNo Status Records FoundNo Status Records FoundNo Status Records Found INFORMATION SOURCE (unrecogn ized section and content) DATE CREATED AUTHOR 08/11/2017 [facility] DATE CREATED AUTHOR AUTHOR'S ORGANIZ ATION 08/12/2017 [facility] DATE CREATED AUTHOR AUTHOR'S ORGANIZ ATION 06/23/2020 [facility] DATE CREATED AUTHOR AUTHOR'S ORGANIZ ATION 11/06/2020 [facility] FOR RECORDS PERTAINING TO PATIENTS WHO ARE OR HAVE BEEN ENROLLED IN A CHEMICAL DEPENDENCY/SUBSTANCEABUSE PROGRAM, SOME INFORMATION MAY BE OMITTED. This clinical summary was aggregated from multiple sources. Caution should be exercised in using it in the provision of clinical care. This summary normalizes information from multiple sources, and as a consequence, information in this document may materially change the coding, format and clinical context of patient data. In addition, data may be omitted in some cases. CLINICAL DECISIONS SHOULD BE BASED ON THE PRIMARY CLINICAL RECORDS. [facility] provides no warranty or guarantee of the accuracy or completeness of information in this document.
[2023-09-25 09:34] LABS: Basophils Percent Auto 0.3 % (0.2-2.0); Eosinophils Absolute Auto 0.1 10^3/uL (0.0-0.7); Eosinophils Percent Auto 0.7 % (0.9-7.0); Hematocrit 45.5 % (42.0-54.0); Hemoglobin 15.1 g/dL (14.0-18.0); Immature Granulocytes Abs Auto 0.02 10^3/uL (0.00-0.03); Immature Granulocytes Pct Auto 0.3 % (0.0-0.5); Lymphocytes Absolute Auto 1.5 10^3/uL (1.2-3.8); Lymphocytes Percent Auto 21.9 % (20.5-60.0); Mean Corpuscular HGB Conc 33.2 g/dL (29.9-35.2); Mean Corpuscular Hemoglobin 32.1 pg (25.9-34.0); Mean Corpuscular Volume 96.6 fL (80.0-94.0); Monocytes Absolute Auto 0.5 10^3/uL (0.3-0.8); Monocytes Percent Auto 7.8 % (1.7-12.0); Neutrophils Absolute Auto 4.7 10^3/uL (1.4-6.5); Platelet Count 195 10^3/uL (150-450); Red Blood Count 4.71 10^6/uL (4.70-6.10); Red Cell Distribution Width 12.7 % (11.0-15.0); White Blood Count 6.8 10^3/uL (4.0-11.0)
[2023-09-25 09:44] LABS: Estimated Average Glucose 123 mg/dL; Glycohemoglobin A1C 5.9 % (4.5-6.2)
[2023-09-25 11:36] LABS: Free T4 0.83 ng/dL (0.76-1.46)
[2023-09-25 11:49] LABS: Prostate Specific Antigen Scrn 1.04 ng/mL (<=4.00)
[2023-09-25 12:02] LABS: Alanine Aminotransferase 25 U/L (16-63); Albumin Globulin Ratio 1.2; Albumin Level 3.7 g/dL (3.4-5.0); Alkaline Phosphatase 71 U/L (46-116); Anion Gap 9.1; Aspartate Amino Transferase 12 U/L (15-37); BUN Creatinine Ratio 25.3; Bilirubin Total 0.9 mg/dL (0.2-1.0); Calcium 9.2 mg/dL (8.5-10.1); Carbon Dioxide 30.1 mmol/L (21.0-32.0); Chloride 105 mmol/L (98-107); Chol HDL Ratio 2.8; Cholesterol 150 mg/dL (<=200); Estimated GFR (African America >60 (>=60); Estimated GFR (Non-African Ame >60 (>=60); Globulin 3.2 g/dL; Glucose 117 mg/dL (74-106); HDL Cholesterol 54 mg/dL (40-60); Potassium 4.2 mmol/L (3.5-5.1); Sodium 140 mmol/L (136-145); Thyroid Stimulating Hormone 7.006 uIU/mL (0.358-3.740); Total Protein 6.9 g/dL (6.4-8.2); Triglycerides 75 mg/dL (<=150)
== END 2023-09-25 09:16 | disposition home or self-care (01) ==
LOC: LAB 09:16
PROVIDERS: PCP Family Medicine; Visit Provider Family Medicine
DX: Z00.00 Encounter for general adult medical examination without abnormal findings (principal)
CPT/HCPCS: 36415; 80053; 80061; 83036; 84439; 84443; 85025; G0103

== ENCOUNTER 2023-10-23 09:28 | Outpatient (OUT) | payer OTHER, SELFPAY ==
--- OUTSIDE RECORDS SUMMARY | 2023-10-23 09:54 | XMS_ITS | CCD ---
Author Organization [facility] CliniSytn Care Team Providers Care Narcotics And Vice Detective Name Role Phone PHYSICIAN, DEFAULT Unavailable Unavailable [...] source) acetaminophen Drug Allergy 08-15-2009 AOF [facility] Repository (2 sources) Penicillins Drug allergy (disorder) 08-15-2009 [facility] Repository (1 source) Acetaminophen Drug Allergy 01-22-2015 [facility] Repository Problems Active Problems Problem Classification Problem [...] - 7.0 ACTION SUGGESTED > 7.0 Normal [facility] Comment on above: Performed By: #### A 1C #### [facility] [address] [place] [address] Dr. Therese Loera Glucose [Mass/Vol] 131 mg/dL Normal [facility] Comment on above: Performed By: #### A 1C #### [facility] [address] [place] [address] Dr. Therese Loera HbA1c (Bld) [Mass fraction] 6.2 % Critically high <=6.0 [facility] Comment on above: Performed By: #### A 1C #### [facility] [address] [place] [address] Dr. Therese Loera LIPID PROFILEon 11-05-2020 CHOL-HDL RATIO NORM SEE BELOW Normal [facility] Comment on above: Result Comment: 3.3 - 4.4 LOW RISK 4.4 - 7.1 AVERAGE RISK 7.1 - 11.0 MODERATE RISK >11.0 HIGH RISK Performed By: #### L IPID #### [facility] [address] [place] [address] Dr. Therese Loera Cholesterol [Mass/Vol] 148 mg/dL Normal <=200 [facility] Comment on above: Performed By: #### L IPID #### [facility] [address] [address] [address] Therese Loera Cholesterol in HDL [Mass/Vol] 42 mg/dL Normal [facility] Comment on above: Performed By: #### L IPID #### [facility] [address] [address] [address] Therese Loera Cholesterol in LDL [Mass/Vol] 89.8 mg/dL Normal [facility] Comment on above: Performed By: #### L IPID #### [facility] [address] [address] [address] Therese Loera Cholesterol.total/Ch olesterol in HDL [Mass ratio] 3.5 {ratio} Normal [facility] Comment on above: Performed By: #### L IPID #### [facility] [address] [address] [address] Therese Loera HDL NORMAL > or = 60 mg/dl - LO W CARDIOVASCULAR RISK <40 mg/dl - HIGH CARDIOVASCULAR RISK Normal [facility] Comment on above: Performed By: #### L IPID #### [facility] [address] [place] [address] Dr. Therese Loera LDL CALC NORMAL SEE BELOW Normal [facility] Comment on above: Result Comment: <100 mg/dl OPTIMAL 100 - 129 mg/dl NEAR OR ABOVE OPTIMAL 130 - 159 mg/dl BORDERLINE HIGH 160 - 189 mg/dl HIGH >190 mg/dl VERY HIGH Performed By: #### L IPID #### [facility] [address] [address] [address] Therese Loera Triglyceride [Mass/Vol] 81 mg/dL Normal <=150 [facility] Comment on above: Performed By: #### L IPID #### [facility] [address] [place] [address] Dr. Therese Loera VLDL CALC 16.2 mg/dL Normal [facility] Comment on above: Performed By: #### L IPID #### [facility] [address] [place] [address] Dr. Therese Loera COVID-19 PCRon 12-28-2019 SARS-CoV-2 (COVID-19) RNA KOJO+probe Ql (Unsp spec) Not detected Normal Not Detected [facility] Comment on above: Result Comment: This nucleic acid amplification test was developed and its performance characteristics determined by [facility]. Nucleic acid amplification tests include PCR and [...] assay. Performed By: #### C VDPCR #### [facility] [address] [place] [address] Roberto Laura Coding Summary.on 11-11-2019 Coding Summary. CODING DATE: 11/11/2019 FINAL [facility] STATUS: Home (Routine DC) PAYOR: [facility] [place] ADMIT DX: REASON FOR VISIT DX: Z01.812 [...] CphT Date Saved: 11/11/2019 03:57 pm Normal [facility] Coding Summary.on 10-28-2019 Coding Summary. CODING DATE: 10/28/2019 FINAL [facility] STATUS: Home (Routine DC) PAYOR: [facility] [place] APC DESCRIPTION 5311 Level 1 Lower GI Procedures ADMIT DX: REASON FOR VISIT DX: Z12.11 Encounter for screening for malignant neoplasm of colon FINAL DX: PRINCIPAL: Z12.11 Encounter for screening for malignant neoplasm of colon SECONDARY: I25.10 Atherosclerotic heart disease of [place] coronary artery without angina pectoris Z79.82 [facility] (current) use of aspirin PYMT PROC APC STAT DESCRIPTION DOCTOR NAME DATE 65420 5311 T Colonoscopy, flexible; Manish TINAJERO MD 10/21/2019 diagnostic, including collection of specimen(s) by brushing or washing, when performed (separate procedure) 18657 Anesthesia for lower Anne Jr. Macario DEVLIN [...] Alba Revised Date Saved: 10/28/2019 12:57 pm [facility] IntraOperative Documentson 0 10-27-2019 IntraOperative Documents [id number]#1. 00CD:127 [facility] Postoperative Documentson Postoperative Documents [id number]#1. 00CD:127 [facility] Main OR Intraoperative Recor don 10-25-2019 Main OR Intraoperative Record IntraOp Document Type FT Summary Primary Physician: Manish TINAJERO MD Finalized Date/Time: 10/25/19 07:07:35 Pt. Name: FORD ROMEO/Sex: 1960 Male Med Rec #: [id number] Physician: Manish TINAJERO MD Financial #: [id number] Pt. Type: O Room/Bed: / Admit/Disch: 10/21/19 [...] Galvin Role Performed Anesthesiologist Surgeon - Primary Field Representatives Director - Primary Rounder And Backer Time In 10/21/19 10:32:00 10/21/19 10:32:00 10/21/19 [...] and tissue Entry 1 Skin Integrity Intact, [place], Warm, and Skin Abnormality No Dry Outcomes [...] Pillow Unde (more content not included)... Normal [facility] Colonoscopy Procedure Report on 10-21-2019 Colonoscopy [...] condition. Manish Tinajero M.D. gls Dictated: 10/21/2019 #[id number] Typed: 10/21/2019 #[id number] cc: Nargis Yost M.D. [facility] Consenton 10-21-2019 Consent [id number]#1. 00CD:127 [facility] Consent for Treatmenton Consent for Treatment [id number]#1.0 0CD:127 [facility] Discharge Instructionson Discharge Instructions [id number]#1. 00CD:127 [facility] Inpatient Patient Summaryon 10-21-2019 Inpatient Patient Summary [address] [address] [facility] Clinical Discharge Instructions PERSON INFORMATION Name: FORD ROMEO [facility]#:[id number] PHYSICIANS Admitting Physician: Manish TINAJERO MD Attending Physician: Manish TINAJERO MD PCP: David MAHONEY, Michael Discharge Diagnosis: Encounter for screening for colorectal malignant neoplasm Comment: PATIENT EDUCATION INFORMATION Instructions: Medication Leaflets: Follow up: With: Address: When: Manish TINAJERO [address] [place] [address], [address], [facility] [address] [place] [address] Business (1) , only if needed MEDICATION [...] Tablets By Mouth every day. Comment: Normal [facility] IntraOperative Documentson 0 10-21-2019 IntraOperative Documents [id number]#1. 00CD:127 Normal [facility] IntraOperative Documents [id number]#1. 00CD:127 Normal [facility] Main OR PACU I Recordon Main OR PACU I Record PACU Phase I Document Type FT Summary Primary Physician: Manish TINAJERO MD Finalized Date/Time: 10/21/19 15:32:50 Pt. Name: VIRGIEJACKY FORD Concepcion /Sex: 1960 Male Med Rec #: [id number] Physician: Manish TINAJERO MD Financial #: [id number] Pt. Type: O Room/Bed: / Admit/Disch: 10/21/19 [...] 15:30 Jenny Jeffery RN 10/21/19 15:32 Normal [facility] Main OR Preoperative Recordo n 10-21-2019 Main OR Preoperative Record Holding Area Document Type FT Summary Primary Physician: Manish TINAJERO MD Finalized Date/Time: 10/21/19 09:51:42 Pt. Name: DAR ROMEOSAMEERO.B./Sex: 1960 Male Med Rec #: [id number] Physician: Manish TINAJERO MD Financial #: [id number] Pt. Type: O Room/Bed: / Admit/Disch: 10/21/19 09:20:40 - Institution: Case Times Holding FT Pre-Care Text: Verifies consent for planned procedure, identifies individual values and wishes concerning care, includes family members in perioperative teaching Secures patient's records' belongings, and valuables, maintains patient's dignity and privacy, and maintains patient confidentiality Entry 1 In Holding 10/21/19 09:22:00 Outcomes Met? Yes Last Modified By: oJ Marshall RN 10/21/19 09:22:54 Post-Care Text: The [...] By: Jo Marshall RN 10/21/19 09:51 Normal [facility] Monitor Recordon 10-21-2019 Monitor Record [id number]#1. 00CD:127 Normal [facility] Outpatient Surgery Discharge Instructionon 10-21-2019 Outpatient Surgery Discharge Instruction [place] [id number] Patient Discharge Instructions PERSON INFORMATION Name: FORD [...] With: Address: When: Manish Nair, [address], [facility] [address] [place] [address] Business (1) , only if needed Pharmacy Information: Thank you for choosing [facility] HERE ARE THE MEDICATION CHANGES THAT OCCURRED [...] every day. PATIENT EDUCATION INFORMATION Instructions: Normal [facility] Patient Education - Texton 0 10-21-2019 Patient Education - Text [facility] Progress Note-Physicianon Progress Note-Physician Patient: FORD [...] without diagnosis of hypertension / SNOMED CT 6138295059 / Confirmed Impotence / SNOMED CT 8788211009 / Confirmed Diabetes mellitus type 2 / SNOMED CT 476558414 / Confirmed Coronary artery disease / SNOMED CT 1183156608 / Confirmed Osteoarthritis of hip / SNOMED CT 417301656 / Confirmed Screening for malignant neoplasm of colon / SNOMED CT 576152177 / Confirmed Rectal bleeding / SNOMED CT 116163836 / Confirmed Depression / SNOMED CT 09408774 / Confirmed Eczema / SNOMED CT 55714122 / Confirmed Occult blood in stools / SNOMED CT 38574210 / Confirmed Physical Examination Vital Signs 10/21/2019 [...] noted. Plan Transfer/ Discharge: Condition stable. Normal [facility] Comment on above: Result Comment: Elec [...] history: Placement of stent in cardiac conduit ([id number]) on 02/16/2009 at 48 Years. Cervical discectomy (152200020). Colonoscopy (538781062). Hip replacement (1813955692). Lumbar discectomy (785012659). Social History Social & Psychosocial Habits Alcohol 09/13/2018 Risk Assessment: Denies Alcohol Use Substance Abuse 09/13/2018 Risk Assessment: Denies Substance Abuse Tobacco 09/30/2019 Tobacco Use: Never (less than 100 in l . Physical Examination Respiratory: Lungs are clear to auscultation. Cardiovascular: Regular rhythm. Plan [place] [employer]hesi[employer] (ASA) physical status classification: Class III. Anesthetic Preoperative Plan Anesthesia: General. . Anesthetic plan, risks, benefits, and alternatives discussed with the patient and/or family. Patient verbalized understanding. Normal [facility] Comment on above: Result Comment: Elec tronically Signed By: Macario Anne Jr., DO\.br\Date and Time Signed: 10/21/19 07:42 EDT Priority Order-Bessy 2019 Priority Order-STAT Comment Invalid Interpretation Code [facility] Comment on above: Result Comment: Rece ived Performed at: [facility] [address] [facility] [place] [id number] MD Patito Pierre Performed By: #### S ARS-CoV-2, KOJO, [id number] ####[facility] [address] [place] [address] SARS-CoV-2, NAAon 10-15-2019 SARS-CoV-2 (COVID-19) RNA KOJO+probe Ql (Resp) Not detected Invalid Interpretation Code Not Detected [facility] Comment on above: Result Comment: This test was developed and its performance characteristics determined by [facility]. This test has not been FDA cleared [...] detected) result in this assay. Performed at: [facility] [address] [facility] [place] [id number] MD Patito Pierre Performed By: #### S ARS-CoV-2, KOJO, [id number] ####[facility] [address] [place] [address] Consenton 10-04-2019 Consent [id number]#1.0 0CD:127 [facility] Facesheeton 10-03-2019 Facesheet [id number]#1.0 0CD:127 [facility] Physician Orderon 10-03-2019 Physician Order [id number]#1.0 0CD:127 [facility] Provider Letter FTon 10-[address] [facility] Michael Hernandez [address] [place] [address] Re: FORD ROMEO Date of : 1960 Thank you for your referral of Ford Romeo who was seen on consultation on 09/30/2019 for screening colonoscopy. I have enclosed my consultation notes for your review. Sincerely, Manish Tinajero MD General Surgery [facility] Ambulatory Clinical Summaryo n 09-30-2019 Ambulatory Clinical Summary {[id number]}CD:[id number] [facility] Patient Educationon 09-30-19 20 Patient Education [...] Document Reviewed: 03/07/2011 ExitCare? Patient Information ?2013 Department of Health and Human Services. Normal [facility] Physician Referralon 020 Physician Referral [id number]#1.0 0CD:127 Normal [facility] Basic Metabolic Panelon 10-18 BUN/Creatinine Ratio 15 mg/mg Normal Moun t [facility] Calcium 8.6 mg/dL Normal 8.5-10.6 [facility] Chloride 106 mmol/L Normal 98-107 [facility] CO2 30 mmol/L Normal 21-32 [facility] Creatinine 0.96 mg/dL Normal 0.55-1.30 [facility] Glucose mass conc 160 mg/dL High 74-106 [facility] Potassium molar conc 4.5 mmol/L Normal 3.5-5.1 Moun [facility] Sodium 141 mmol/L Normal 136-145 [facility] Urea nitrogen 14 mg/dL Normal 7-18 [facility] CBC with Differentialon 10-18 Basophils Auto #/vol (Bld) 0.0 thou/mcL Normal 0.0-0.1 [facility] Basophils/100 WBC Auto (Bld) 0.9 % Normal 0.2-1.4 [facility] Diff Method AUTOMATED DIFFERENTIAL Normal [facility] Eosinophils 0.1 thou/mcL Normal 0.0-0.5 [facility] Eosinophils/100 leukocytes 2.6 % Normal 0.6-7.9 [facility] Erythrocyte distribution width Auto Ratio (RBC) 13.6 % Normal 12.3-17.0 [facility] Erythrocytes (RBC) 4.56 x(10)6/mcL Normal 3.73-5.50 [facility] Hematocrit (HCT) 41.4 % Normal 33.3-45.[address] [facility] Hemoglobin mass conc (Bld) 13.9 g/dL Normal 11.4-15.9 [facility] Lymphocytes 1.5 thou/mcL Normal 1.0-3.0 [facility] Lymphocytes/100 leukocytes 29.8 % Normal 16.0-43.5 [facility] MCH 30.5 Picograms Normal 24.3-33.2 [facility] MCHC mass conc (RBC) 33.5 g/dL Normal 32.5-35.8 Moun [facility] MCV 90.8 fL Normal 73.7-95.5 [facility] Monocytes 0.3 thou/mcL Normal 0.3-1.0 [facility] Monocytes/100 leukocytes 5.7 % Normal 4.5-12.5 [facility] Neutrophils 3.0 thou/mcL Normal 1.8-7.8 [facility] Neutrophils/100 WBC Auto (Bld) 61.0 % Normal 43.0-76.6 [facility] Platelet mean volume (PMV) 8.1 fL Normal 7.5-11.2 [facility] Platelets 200 thou/mcL Normal 159-386 [facility] WBC (Leukocytes) 5.0 thou/mcL Normal 3.6-11.2 [facility] Partial Thromboplastin Time (aPTT)on 11-14-2016 aPTT 34 Sec Normal 24.4-37.5 [facility] Prothrombin Timeon 7 INR Coag RelTime (Bld) 1.0 {INR} Normal 0.8-1.2 [facility] Comment on above: Result Comment: IVY NG THE INDUCTION PHASE OF ORAL ANTICOAGULATION, THE INR MAY NOT REFLECT THE ANTICOAGULANT STATUS OF THE PATIENT. THERAPEUTIC RANGES FOR INR'S ARE: MOST CLINICAL SITUATIONS: INR 2.0-3.0 MECHANICAL PROSTHETIC VALVES: INR 2.5-3.5 CRITICAL: INR 5.0 Prothrombin time (PT) Coag time (PPP) 11.2 Sec Normal 9.4-12.5 [facility] Urinalysis with Microscopic Automaticon 11-14-2016 Bilirubin Urine Negative Normal NEG [facility] Nitrite Urine Negative Normal NEG [facility] Urine, clarity CLEAR Normal CLER [facility] Urine, color YELLOW Normal YEL [facility] Urine, glucose presence Negative Normal NEG [facility] Urine, hemoglobin presence Negative Normal NEG [facility] Urine, ketones presence Negative Normal NEG [facility] Urine, leukocytes in sedmiment Negative Normal NEG [facility] Urine, microscopic observation of sediment NONE SEEN Normal [facility] Urine, pH 5.5 [pH] Normal 5.0-7.5 [facility] Urine, protein Negative Normal NEG [facility] Urine, specific gravity >1.030 High 1.005-1.030 [facility] Urobilinogen Urine 0.2 mg/dL Normal 0.0-1.9 [facility] Basic Metabolic Panelon BUN/Creatinine Ratio 18 mg/mg Normal Moun t [facility] Calcium 9.0 mg/dL Normal 8.5-10.6 [facility] Chloride 104 mmol/L Normal 98-107 [facility] CO2 28 mmol/L Normal 21-32 [facility] Creatinine 0.91 mg/dL Normal 0.55-1.30 [facility] Glucose mass conc 102 mg/dL Normal 74-106 [facility] Potassium molar conc 4.9 mmol/L Normal 3.5-5.1 Moun [facility] Sodium 143 mmol/L Normal 136-145 [facility] Urea nitrogen 16 mg/dL Normal 7-18 [facility] CBC with Differentialon 0 Basophils Auto #/vol (Bld) 0.1 thou/mcL Normal 0.0-0.1 [facility] Basophils/100 WBC Auto (Bld) 0.8 % Normal 0.2-1.4 [facility] Diff Method AUTOMATED DIFFERENTIAL Normal [facility] Eosinophils 0.1 thou/mcL Normal 0.0-0.5 [facility] Eosinophils/100 leukocytes 1.8 % Normal 0.6-7.9 [facility] Erythrocyte distribution width Auto Ratio (RBC) 13.5 % Normal 12.3-17.0 [facility] Erythrocytes (RBC) 5.42 x(10)6/mcL Normal 3.73-5.50 [facility] Hematocrit (HCT) 50.8 % High 33.3-45.[address] [facility] Hemoglobin mass conc (Bld) 17.0 g/dL High 11.4-15.9 [facility] Lymphocytes 1.6 thou/mcL Normal 1.0-3.0 [facility] Lymphocytes/100 leukocytes 25.4 % Normal 16.0-43.5 [facility] MCH 31.4 Picograms Normal 24.3-33.2 [facility] MCHC mass conc (RBC) 33.5 g/dL Normal 32.5-35.8 Moun [facility] MCV 93.8 fL Normal 73.7-95.5 [facility] Monocytes 0.4 thou/mcL Normal 0.3-1.0 [facility] Monocytes/100 leukocytes 6.3 % Normal 4.5-12.5 [facility] Neutrophils 4.2 thou/mcL Normal 1.8-7.8 [facility] Neutrophils/100 WBC Auto (Bld) 65.7 % Normal 43.0-76.6 [facility] Platelet mean volume (PMV) 8.8 fL Normal 7.5-11.2 [facility] Platelets 188 thou/mcL Normal 159-386 [facility] WBC (Leukocytes) 6.3 thou/mcL Normal 3.6-11.2 [facility] Partial Thromboplastin Time (aPTT)on 09-22-2016 aPTT 32 Sec Normal 24.4-37.5 [facility] Prothrombin Timeon 7 INR Coag RelTime (Bld) 1.0 {INR} Normal 0.8-1.2 [facility] Comment on above: Result Comment: IVY NG THE INDUCTION PHASE OF ORAL ANTICOAGULATION, THE INR MAY NOT REFLECT THE ANTICOAGULANT STATUS OF THE PATIENT. THERAPEUTIC RANGES FOR INR'S ARE: MOST CLINICAL SITUATIONS: INR 2.0-3.0 MECHANICAL PROSTHETIC VALVES: INR 2.5-3.5 CRITICAL: INR 5.0 Prothrombin time (PT) Coag time (PPP) 11.2 Sec Normal 9.4-12.5 [facility] Urinalysis with Microscopic Automaticon 09-22-2016 Bilirubin Urine Negative Normal NEG [facility] Nitrite Urine Negative Normal NEG [facility] Urine, clarity CLEAR Normal CLER [facility] Urine, color YELLOW Normal YEL [facility] Urine, glucose presence Negative Normal NEG [facility] Urine, hemoglobin presence Negative Normal NEG [facility] Urine, ketones presence Negative Normal NEG [facility] Urine, leukocytes in sedmiment Negative Normal NEG [facility] Urine, pH 6.0 [pH] Normal 5.0-7.5 [facility] Urine, protein Negative Normal NEG [facility] Urine, specific gravity 1.025 Normal 1.005-1.030 [facility] Urobilinogen Urine 0.2 mg/dL Normal 0.0-1.9 [facility] Encounters Encounter Date Encounter Type Care Provider Facility Start: 11-05-2020 End: 11-06-[address] MICHAEL HERNANDEZ Facility:[facility] Start: 09-12-[address] RAFFY MONTGOMERY [facility] ility:[facility] Start: 07-11-[address] MICHAEL HERNANDEZ Facility :[facility] Start: 06-13-2020 End: 06-14-2020 ambulatory SIGIFREDO CHRISTENSEN Facility:[facility] Start: 05-23-2020 End: 05-24-[address] HERBERT LISTED REQUEST Facility: Start: 12-26-2019 End: 12-27-[address] MICHAEL HERNANDEZ Facility: Start: 12-04-2016 End: 12-05-2016 Ambulatory DEFAULT PHYSICIAN Facility:[facility] Start: 11-17-2016 End: 11-18-2016 Ambulatory DEFAULT PHYSICIAN Facility:[facility] Start: 11-15-2016 End: 11-15-2016 Ambulatory LOLA DUNCAN Facility:[facility] Start: 09-23-2016 End: 09-23-2016 Ambulatory LOLA DUNCAN Facility:[facility] Payers Date Payer Category Payer Unknown [id number] 1960 Unknown [id number] 2.16.84 [id number] 1960 Unknown [id number] .16.84 [id number] 1958 Self-pay 1958 Self-pay [id number] 1958 Unknown [id number] Unknown Unknown [id number] 2.16.84 [id number] Unknown [id number] 2.16.84 [id number] Unknown [id number] .16.84 [id number] Unknown [id number] .16.84 [id number] History and physical note 10-21-2019 Note Date & Type Note Facility 10-21-2019 Note [id number]#1.00CD:127 [facility] History and physical note 10-21-2019 Note Date & Type Note Facility 10-21-2019 Note Patient: DEEDEE ROMEO KAREN J Age: 59 years Sex: Male : 1960 Associated Diagnoses: None Author: Manish TINAJERO MD Subjective no changes to H & P [facility] Comment on above: Result Comment: Elec [...] available Patient Education Exercise to Lose Weight, Ggwh-[id number]-[id number] Problem List/Past Medical History Ongoing Coronary artery [...] Use:., 09/30/2019 Family History Heart failure: Father. [facility] Comment on above: Result Comment: Elec [...] section and content) DATE CREATED AUTHOR 08/11/2017 [facility] DATE CREATED AUTHOR AUTHOR'S ORGANIZ ATION 08/12/2017 [facility] DATE CREATED AUTHOR AUTHOR'S ORGANIZ ATION 06/23/[address] [facility] DATE CREATED AUTHOR AUTHOR'S ORGANIZ ATION 11/06/2020 [facility] FOR RECORDS PERTAINING TO PATIENTS WHO [...] THE PRIMARY CLINICAL RECORDS. [facility]. provides no warranty or guarantee of the accuracy or completeness of information in this document.
[2023-10-23 10:40] LABS: Free T3 2.28 pg/mL (2.18-3.98); Thyroid Stimulating Hormone 4.007 uIU/mL (0.358-3.740)
== END 2023-10-23 09:29 | disposition home or self-care (01) ==
PROVIDERS: PCP Family Medicine; Visit Provider Family Medicine
DX: E05.90 Thyrotoxicosis, unspecified without thyrotoxic crisis or storm (principal)
CPT/HCPCS: 36415; 84436; 84443; 84481

== ENCOUNTER 2023-10-27 06:10 | Outpatient (OUT) | payer OTHER, SELFPAY ==
--- OUTSIDE RECORDS SUMMARY | 2023-10-27 06:13 | XMS_ITS | CCD ---
Author Organization [facility] Care Team Providers Care Ed Educational Aide Name Role Phone PHYSICIAN, DEFAULT Unavailable Unavailable PHYSICIAN, DEFAULT Unavailable Unavailable HOY, MICHAEL Unavailable Unavailable PHYSICIAN, DEFAULT Unavailable Unavailable PHYSICIAN, DEFAULT Unavailable Unavailable HOY, MICHAEL Unavailable Unavailable DAKOTA, OLLA E Unavailable Unavailable HOY, MICHAEL Unavailable Unavailable [...] source) acetaminophen Drug Allergy 08-15-2009 AOF [facility] Repository (2 sources) Penicillins Drug allergy (disorder) 08-15-2009 [facility] Repository (1 source) Acetaminophen Drug Allergy 01-22-2015 [facility] Repository Problems Active Problems Problem Classification [...] - 7.0 ACTION SUGGESTED > 7.0 Normal [facility] Comment on above: Performed By: #### A 1C #### [facility] [address] [place] [address] Dr. Therese Loera Glucose [Mass/Vol] 131 mg/dL Normal [facility] Comment on above: Performed By: #### A 1C #### [facility] [address] [place] [address] Dr. Therese Loera HbA1c (Bld) [Mass fraction] 6.2 % Critically high <=6.0 [facility] Comment on above: Performed By: #### A 1C #### [facility] [address] [place] [address] Dr. Therese Loera LIPID PROFILEon 11-05-2020 CHOL-HDL RATIO NORM SEE BELOW Normal [facility] Comment on above: Result Comment: 3.3 - 4.4 LOW RISK 4.4 - 7.1 AVERAGE RISK 7.1 - 11.0 MODERATE RISK >11.0 HIGH RISK Performed By: #### L IPID #### [facility] [address] [place] [address] Dr. Therese Loera Cholesterol [Mass/Vol] 148 mg/dL Normal <=200 [facility] Comment on above: Performed By: #### L IPID #### [facility] [address] [address] [address] Therese Loera Cholesterol in HDL [Mass/Vol] 42 mg/dL Normal [facility] Comment on above: Performed By: #### L IPID #### [facility] [address] [address] [address] Therese Loera Cholesterol in LDL [Mass/Vol] 89.8 mg/dL Normal [facility] Comment on above: Performed By: #### L IPID #### [facility] [address] [address] [address] Therese Loera Cholesterol.total/Ch olesterol in HDL [Mass ratio] 3.5 {ratio} Normal [facility] Comment on above: Performed By: #### L IPID #### [facility] [address] [address] [address] Therese Loera HDL NORMAL > or = 60 mg/dl - LO W CARDIOVASCULAR RISK <40 mg/dl - HIGH CARDIOVASCULAR RISK Normal [facility] Comment on above: Performed By: #### L IPID #### [facility] [address] [place] [address] Dr. Therese Loera LDL CALC NORMAL SEE BELOW Normal [facility] Comment on above: Result Comment: <100 mg/dl OPTIMAL 100 - 129 mg/dl NEAR OR ABOVE OPTIMAL 130 - 159 mg/dl BORDERLINE HIGH 160 - 189 mg/dl HIGH >190 mg/dl VERY HIGH Performed By: #### L IPID #### [facility] [address] [address] [address] Therese Loera Triglyceride [Mass/Vol] 81 mg/dL Normal <=150 [facility] Comment on above: Performed By: #### L IPID #### [facility] [address] [place] [address] Dr. Therese Loera VLDL CALC 16.2 mg/dL Normal [facility] Comment on above: Performed By: #### L IPID #### [facility] [address] [place] [address] Dr. Therese Loera COVID-19 PCRon 12-28-2019 SARS-CoV-2 (COVID-19) RNA KOJO+probe Ql (Unsp spec) Not detected Normal Not Detected [facility] Comment on above: Result Comment: This nucleic acid amplification test was developed and its performance characteristics determined by [employer]. Nucleic acid amplification tests include PCR and [...] assay. Performed By: #### C VDPCR #### [facility] [address] [place] [address] Roberto Laura Coding Summary.on 11-11-2019 Coding Summary. CODING DATE: 11/11/2019 FINAL [facility] STATUS: Home (Routine DC) PAYOR: Medical [place] ADMIT DX: REASON FOR VISIT DX: Z01.812 [...] CphT Date Saved: 11/11/2019 03:57 pm Normal [facility] Coding Summary.on 10-28-2019 Coding Summary. CODING DATE: 10/28/2019 FINAL [facility] STATUS: Home (Routine DC) PAYOR: Medical [place] APC DESCRIPTION 5311 Level 1 Lower GI Procedures ADMIT DX: REASON FOR VISIT DX: Z12.11 Encounter for screening for malignant neoplasm of colon FINAL DX: PRINCIPAL: Z12.11 Encounter for screening for malignant neoplasm of colon SECONDARY: I25.10 Atherosclerotic heart disease of [place] coronary artery without angina pectoris Z79.82 FDC (current) use of aspirin PYMT PROC APC STAT DESCRIPTION DOCTOR NAME DATE 60302 5311 T Colonoscopy, flexible; Manish TINAJERO MD 10/21/2019 diagnostic, including collection of specimen(s) by brushing or washing, when performed (separate procedure) 32727 Anesthesia for lower Anne Jr. Macario DEVLIN [...] Alba Revised Date Saved: 10/28/2019 12:57 pm [facility] IntraOperative Documentson 0 10-27-2019 IntraOperative Documents [id number]#1. 00CD:127 [facility] Postoperative Documentson Postoperative Documents [id number]#1. 00CD:127 [facility] Main OR Intraoperative Recor don 10-25-2019 Main OR Intraoperative Record IntraOp Document Type FT Summary Primary Physician: Manish TINAJERO MD Finalized Date/Time: 10/25/19 07:07:35 Pt. Name: FORD ROMEO/Sex: 1960 Male Med Rec #: [id number] Physician: Manish TINAJERO MD Financial #: [id number] Pt. Type: O Room/Bed: / Admit/Disch: 10/21/19 [...] Galvin Role Performed Anesthesiologist Surgeon - Primary Transcription Specialist - Primary Antique Repairer Time In 10/21/19 10:32:00 10/21/19 10:32:00 10/21/19 [...] and tissue Entry 1 Skin Integrity Intact, [place], Warm, and Skin Abnormality No Dry Outcomes [...] Pillow Unde (more content not included)... Normal [facility] Colonoscopy Procedure Report on 10-21-2019 Colonoscopy Procedure [...] condition. Manish Tinajero M.D. gls Dictated: 10/21/2019 #[id number] Typed: 10/21/2019 #[id number] cc: Nargis Yost M.D. [facility] Consenton 10-21-2019 Consent [id number]#1. 00CD:127 [facility] Consent for Treatmenton Consent for Treatment [id number]#1.0 0CD:127 [facility] Discharge Instructionson Discharge Instructions [id number]#1. 00CD:127 [facility] Inpatient Patient Summaryon 10-21-2019 Inpatient Patient Summary [address] [address] [facility] Clinical Discharge Instructions PERSON INFORMATION Name: FORD ROMEO [facility]#:[id number] PHYSICIANS Admitting Physician: Manish TINAJERO MD Attending Physician: Manish TINAJERO MD PCP: David MAHONEY, Michael Discharge Diagnosis: Encounter for screening for colorectal malignant neoplasm Comment: PATIENT EDUCATION INFORMATION Instructions: Medication Leaflets: Follow up: With: Address: When: Manish TINAJERO [address] [place] [address], [address], [facility] [address] [place] [address] Business (1) , only if needed MEDICATION [...] Tablets By Mouth every day. Comment: Normal [facility] IntraOperative Documentson 0 10-21-2019 IntraOperative Documents [id number]#1. 00CD:127 Normal [facility] IntraOperative Documents [id number]#1. 00CD:127 Normal [facility] Main OR PACU I Recordon Main OR PACU I Record PACU Phase I Document Type FT Summary Primary Physician: Manish TINAJERO MD Finalized Date/Time: 10/21/19 15:32:50 Pt. Name: VIRGIEJACKY FORD Concepcion /Sex: 1960 Male Med Rec #: [id number] Physician: Manish TINAJERO MD Financial #: [id number] Pt. Type: O Room/Bed: / Admit/Disch: 10/21/19 [...] 15:30 Jenny Jeffery RN 10/21/19 15:32 Normal [facility] Main OR Preoperative Recordo n 10-21-2019 Main OR Preoperative Record Holding Area Document Type FT Summary Primary Physician: Manish TINAJERO MD Finalized Date/Time: 10/21/19 09:51:42 Pt. Name: DAR ROMEOSAMEERO.B./Sex: 1960 Male Med Rec #: [id number] Physician: Manish TINAJERO MD Financial #: [id number] Pt. Type: O Room/Bed: / Admit/Disch: 10/21/19 [...] By: Jo Marshall RN 10/21/19 09:51 Normal [facility] Monitor Recordon 10-21-2019 Monitor Record [id number]#1. 00CD:127 Normal [facility] Outpatient Surgery Discharge Instructionon 10-21-2019 Outpatient Surgery Discharge Instruction [address] [id number] Patient Discharge Instructions PERSON INFORMATION Name: FORD [...] With: Address: When: Manish Nair, [address], [facility] [address] [place] [address] Business (1) , only if needed Pharmacy Information: Thank you for choosing [facility] HERE ARE THE MEDICATION CHANGES THAT [...] every day. PATIENT EDUCATION INFORMATION Instructions: Normal [facility] Patient Education - Texton 0 10-21-2019 Patient Education - Text [facility] Progress Note-Physicianon Progress Note-Physician Patient: FORD [...] without diagnosis of hypertension / SNOMED CT 8460566742 / Confirmed Impotence / SNOMED CT 0361189290 / Confirmed Diabetes mellitus type 2 / SNOMED CT 477159447 / Confirmed Coronary artery disease / SNOMED CT 2016084651 / Confirmed Osteoarthritis of hip / SNOMED CT 362722128 / Confirmed Screening for malignant neoplasm of colon / SNOMED CT 484210845 / Confirmed Rectal bleeding / SNOMED CT 774994467 / Confirmed Depression / SNOMED CT 68870880 / Confirmed Eczema / SNOMED CT 33839520 / Confirmed Occult blood in stools / SNOMED CT 44469342 / Confirmed Physical Examination Vital Signs 10/21/2019 [...] noted. Plan Transfer/ Discharge: Condition stable. Normal [facility] Comment on above: Result Comment: Elec tronically [...] history: Placement of stent in cardiac conduit ([id number]) on 02/16/2009 at 48 Years. Cervical discectomy (079193711). Colonoscopy (099215641). Hip replacement (3565508101). Lumbar discectomy (387495026). Social History Social & Psychosocial Habits Alcohol 09/13/2018 Risk Assessment: Denies Alcohol Use Substance Abuse 09/13/2018 Risk Assessment: Denies Substance Abuse Tobacco 09/30/2019 Tobacco Use: Never (less than 100 in l . Physical Examination Respiratory: Lungs are clear to auscultation. Cardiovascular: Regular rhythm. Plan [place] [employer]hesi[employer] (ASA) physical status classification: Class III. Anesthetic Preoperative Plan Anesthesia: General. . Anesthetic plan, risks, benefits, and alternatives discussed with the patient and/or family. Patient verbalized understanding. Normal [facility] Comment on above: Result Comment: Elec tronically Signed By: Macario Anne Jr., DO\.br\Date and Time Signed: 10/21/19 07:42 EDT Priority Order-Bessy 2019 Priority Order-STAT Comment Invalid Interpretation Code [facility] Comment on above: Result Comment: Rece ived Performed at: [facility] [address] [facility] [place] [id number] MD Patito Pierre Performed By: #### S ARS-CoV-2, KOJO, [id number] ####[facility] [id number] [place] [address] SARS-CoV-2, NAAon 10-15-2019 SARS-CoV-2 (COVID-19) RNA KOJO+probe Ql (Resp) Not detected Invalid Interpretation Code Not Detected [facility] Comment on above: Result Comment: This test was developed and its performance characteristics determined by [employer]. This test has not been FDA cleared [...] detected) result in this assay. Performed at: [facility] [address] [facility] [place] [id number] MD Patito Pierre Performed By: #### S ARS-CoV-2, KOJO, [id number] ####[facility] [id number] [place] [address] Consenton 10-04-2019 Consent [id number]#1.0 0CD:127 [facility] Facesheeton 10-03-2019 Facesheet [id number]#1.0 0CD:127 [facility] Physician Orderon 10-03-2019 Physician Order [id number]#1.0 0CD:127 [facility] Provider Letter FTon 10-02 Provider Letter [facility] [place] Michael [address] [place] [address] Re: FORD ROMEO Date of : 1960 Thank you for your referral of Ford Romeo who was seen on consultation on 09/30/2019 for screening colonoscopy. I have enclosed my consultation notes for your review. Sincerely, Manish Tinajero MD General Surgery [facility] Ambulatory Clinical Summaryo n 09-30-2019 Ambulatory Clinical Summary {[id number]}CD:[id number] [facility] Patient Educationon 09-30-19 20 Patient Education [...] Document Reviewed: 03/07/2011 ExitCare? Patient Information ?2013 [employer]. Normal [facility] Physician Referralon 020 Physician Referral [id number]#1.0 0CD:127 Normal [facility] Basic Metabolic Panelon 10-18 BUN/Creatinine Ratio 15 mg/mg Normal Moun t [facility] Calcium 8.6 mg/dL Normal 8.5-10.6 [facility] Chloride 106 mmol/L Normal 98-107 [facility] CO2 30 mmol/L Normal 21-32 [facility] Creatinine 0.96 mg/dL Normal 0.55-1.30 [facility] Glucose mass conc 160 mg/dL High 74-106 [facility] Potassium molar conc 4.5 mmol/L Normal 3.5-5.1 [facility] Sodium 141 mmol/L Normal 136-145 [facility] Urea nitrogen 14 mg/dL Normal 7-18 [facility] CBC with Differentialon 10-18 Basophils Auto #/vol (Bld) 0.0 thou/mcL Normal 0.0-0.1 [facility] Basophils/100 WBC Auto (Bld) 0.9 % Normal 0.2-1.4 [facility] Diff Method AUTOMATED DIFFERENTIAL Normal [facility] Eosinophils 0.1 thou/mcL Normal 0.0-0.5 [facility] Eosinophils/100 leukocytes 2.6 % Normal 0.6-7.9 [facility] Erythrocyte distribution width Auto Ratio (RBC) 13.6 % Normal 12.3-17.0 [facility] Erythrocytes (RBC) 4.56 x(10)6/mcL Normal 3.73-5.50 [facility] Hematocrit (HCT) 41.4 % Normal 33.3-45.7 [facility] Hemoglobin mass conc (Bld) 13.9 g/dL Normal 11.4-15.9 [facility] Lymphocytes 1.5 thou/mcL Normal 1.0-3.0 [facility] Lymphocytes/100 leukocytes 29.8 % Normal 16.0-43.5 [facility] MCH 30.5 Picograms Normal 24.3-33.2 [facility] MCHC mass conc (RBC) 33.5 g/dL Normal 32.5-35.8 [facility] MCV 90.8 fL Normal 73.7-95.5 [facility] Monocytes 0.3 thou/mcL Normal 0.3-1.0 [facility] Monocytes/100 leukocytes 5.7 % Normal 4.5-12.5 [facility] Neutrophils 3.0 thou/mcL Normal 1.8-7.8 [facility] Neutrophils/100 WBC Auto (Bld) 61.0 % Normal 43.0-76.6 [facility] Platelet mean volume (PMV) 8.1 fL Normal 7.5-11.2 [facility] Platelets 200 thou/mcL Normal 159-386 [facility] WBC (Leukocytes) 5.0 thou/mcL Normal 3.6-11.2 [facility] Partial Thromboplastin Time (aPTT)on 11-14-2016 aPTT 34 Sec Normal 24.4-37.5 [facility] Prothrombin Timeon 7 INR Coag RelTime (Bld) 1.0 {INR} Normal 0.8-1.2 [facility] Comment on above: Result Comment: IVY NG THE INDUCTION PHASE OF ORAL ANTICOAGULATION, THE INR MAY NOT REFLECT THE ANTICOAGULANT STATUS OF THE PATIENT. THERAPEUTIC RANGES FOR INR'S ARE: MOST CLINICAL SITUATIONS: INR 2.0-3.0 MECHANICAL PROSTHETIC VALVES: INR 2.5-3.5 CRITICAL: INR 5.0 Prothrombin time (PT) Coag time (PPP) 11.2 Sec Normal 9.4-12.5 [facility] Urinalysis with Microscopic Automaticon 11-14-2016 Bilirubin Urine Negative Normal NEG [facility] Nitrite Urine Negative Normal NEG [facility] Urine, clarity CLEAR Normal CLER [facility] Urine, color YELLOW Normal YEL [facility] Urine, glucose presence Negative Normal NEG [facility] Urine, hemoglobin presence Negative Normal NEG [facility] Urine, ketones presence Negative Normal NEG [facility] Urine, leukocytes in sedmiment Negative Normal NEG [facility] Urine, microscopic observation of sediment NONE SEEN Normal [facility] Urine, pH 5.5 [pH] Normal 5.0-7.5 [facility] Urine, protein Negative Normal NEG [facility] Urine, specific gravity >1.030 High 1.005-1.030 [facility] Urobilinogen Urine 0.2 mg/dL Normal 0.0-1.9 [facility] Basic Metabolic Panelon BUN/Creatinine Ratio 18 mg/mg Normal Moun t [facility] Calcium 9.0 mg/dL Normal 8.5-10.6 [facility] Chloride 104 mmol/L Normal 98-107 [facility] CO2 28 mmol/L Normal 21-32 [facility] Creatinine 0.91 mg/dL Normal 0.55-1.30 [facility] Glucose mass conc 102 mg/dL Normal 74-106 [facility] Potassium molar conc 4.9 mmol/L Normal 3.5-5.1 [facility] Sodium 143 mmol/L Normal 136-145 [facility] Urea nitrogen 16 mg/dL Normal 7-18 [facility] CBC with Differentialon 0 Basophils Auto #/vol (Bld) 0.1 thou/mcL Normal 0.0-0.1 [facility] Basophils/100 WBC Auto (Bld) 0.8 % Normal 0.2-1.4 [facility] Diff Method AUTOMATED DIFFERENTIAL Normal [facility] Eosinophils 0.1 thou/mcL Normal 0.0-0.5 [facility] Eosinophils/100 leukocytes 1.8 % Normal 0.6-7.9 [facility] Erythrocyte distribution width Auto Ratio (RBC) 13.5 % Normal 12.3-17.0 [facility] Erythrocytes (RBC) 5.42 x(10)6/mcL Normal 3.73-5.50 [facility] Hematocrit (HCT) 50.8 % High 33.3-45.7 [facility] Hemoglobin mass conc (Bld) 17.0 g/dL High 11.4-15.9 [facility] Lymphocytes 1.6 thou/mcL Normal 1.0-3.0 [facility] Lymphocytes/100 leukocytes 25.4 % Normal 16.0-43.5 [facility] MCH 31.4 Picograms Normal 24.3-33.2 [facility] MCHC mass conc (RBC) 33.5 g/dL Normal 32.5-35.8 [facility] MCV 93.8 fL Normal 73.7-95.5 [facility] Monocytes 0.4 thou/mcL Normal 0.3-1.0 [facility] Monocytes/100 leukocytes 6.3 % Normal 4.5-12.5 [facility] Neutrophils 4.2 thou/mcL Normal 1.8-7.8 [facility] Neutrophils/100 WBC Auto (Bld) 65.7 % Normal 43.0-76.6 [facility] Platelet mean volume (PMV) 8.8 fL Normal 7.5-11.2 [facility] Platelets 188 thou/mcL Normal 159-386 [facility] WBC (Leukocytes) 6.3 thou/mcL Normal 3.6-11.2 [facility] Partial Thromboplastin Time (aPTT)on 09-22-2016 aPTT 32 Sec Normal 24.4-37.5 [facility] Prothrombin Timeon 7 INR Coag RelTime (Bld) 1.0 {INR} Normal 0.8-1.2 [facility] Comment on above: Result Comment: IVY NG THE INDUCTION PHASE OF ORAL ANTICOAGULATION, THE INR MAY NOT REFLECT THE ANTICOAGULANT STATUS OF THE PATIENT. THERAPEUTIC RANGES FOR INR'S ARE: MOST CLINICAL SITUATIONS: INR 2.0-3.0 MECHANICAL PROSTHETIC VALVES: INR 2.5-3.5 CRITICAL: INR 5.0 Prothrombin time (PT) Coag time (PPP) 11.2 Sec Normal 9.4-12.5 [facility] Urinalysis with Microscopic Automaticon 09-22-2016 Bilirubin Urine Negative Normal NEG [facility] Nitrite Urine Negative Normal NEG [facility] Urine, clarity CLEAR Normal CLER [facility] Urine, color YELLOW Normal YEL [facility] Urine, glucose presence Negative Normal NEG [facility] Urine, hemoglobin presence Negative Normal NEG [facility] Urine, ketones presence Negative Normal NEG [facility] Urine, leukocytes in sedmiment Negative Normal NEG [facility] Urine, pH 6.0 [pH] Normal 5.0-7.5 [facility] Urine, protein Negative Normal NEG [facility] Urine, specific gravity 1.025 Normal 1.005-1.030 [facility] Urobilinogen Urine 0.2 mg/dL Normal 0.0-1.9 [facility] Encounters Encounter Date Encounter Type Care Provider Facility Start: 11-05-2020 End: 11-06-[address] MICHAEL HERNANDEZ Facility:[facility] Start: 09-12-[address] RAFFY MONTGOMERY [facility] ility:[facility] Start: 07-11-[address] MICHAEL HERNANDEZ Facility :[facility] Start: 06-13-2020 End: 06-14-2020 ambulatory SIGIFREDO CHRISTENSEN Facility:[facility] Start: 05-23-2020 End: 05-24-[address] HERBERT LISTED REQUEST Facility: Start: 12-26-2019 End: 12-27-[address] MICHAEL HERNANDEZ Facility: Start: 12-04-2016 End: 12-05-2016 Ambulatory DEFAULT PHYSICIAN Facility:[facility] Start: 11-17-2016 End: 11-18-2016 Ambulatory DEFAULT PHYSICIAN Facility:[facility] Start: 11-15-2016 End: 11-15-2016 Ambulatory LOLA DUNCAN [place] Start: 09-23-2016 End: 09-23-2016 Ambulatory LOLA DUNCAN Facility:[place] Payers Date Payer Category Payer Unknown [id number] 1960 Unknown [id number] 2.16.84 [id number] 1960 Unknown [id number] .16.84 [id number] 1958 Self-pay 1958 Self-pay [id number] 1958 Unknown [id number] Unknown Unknown [id number] 2.16.84 [id number] Unknown [id number] 2.16.84 [id number] Unknown [id number] .16.84 [id number] Unknown [id number] .16.84 [id number] History and physical note 10-21-2019 Note Date & Type Note Facility 10-21-2019 Note [id number] 1#1.00CD:127 [facility] History and physical note 10-21-2019 Note Date & Type Note Facility 10-21-2019 Note Patient: DEEDEE ROMEO KAREN J Age: 59 years Sex: Male : 1960 Associated Diagnoses: None Author: Manish TINAJERO MD Subjective no changes to H & P [facility] Comment on above: Result Comment: Elec tronically [...] available Patient Education Exercise to Lose Weight, Qvff-vz-Xiip Problem List/Past Medical History Ongoing Coronary artery [...] Use:., 09/30/2019 Family History Heart failure: Father. [facility] Comment on above: Result Comment: Elec tronically [...] section and content) DATE CREATED AUTHOR 08/11/2017 [facility] DATE CREATED AUTHOR AUTHOR'S ORGANIZ ATION 08/12/2017 [facility] DATE CREATED AUTHOR AUTHOR'S ORGANIZ ATION 06/23/2020 [facility] DATE CREATED AUTHOR AUTHOR'S ORGANIZ ATION 11/06/2020 [facility] FOR RECORDS PERTAINING TO PATIENTS WHO [...] BE BASED ON THE PRIMARY CLINICAL RECORDS. [facility]. provides no warranty or guarantee of the accuracy or completeness of information in this document.
--- NOTE | 2023-10-27 06:15 | NM_ITS ---
Patient Name: FORD ROMEO MR#: [id number] : 1960 Exam Date: 10/27/2023 Ordering Doctor: DR Kirby Hernandez . RADIOLOGY REPORT PROCEDURE: NM ZENON PERF SPECT REST STR COMPARISON: None. INDICATIONS: CHEST PAIN TECHNIQUE: Exam Description: Stress/Rest one day protocol gated SPECT Rest Imagin.3 mCi Tc-99m Cardiolite IV on 10/27/2023 Stress Imaging 30.4 mCi Tc-99m Cardiolite IV on 10/27/2023 Exercise Protocol: Jong Heart Rate (bpm): Rest: 55 Max: 139 PMHR: 87 Blood Pressure: Rest: 128/68 Max: 170/60 Exercise Time: Minutes: 8 Seconds: 20 Stage Reached: Stage: 3 Mets 10.1 Symptoms: Rest and peak stress ECG findings were pending and the exercise portion of the study was pending per attending physician Dr. VEGA . For more details please see separate cardiac stress test report. FINDINGS: QUALITY OF STUDY: Excellent. PERFUSION DEFECT: None. LOCATION: N/A SIZE: N/A. SEVERITY: N/A. TYPE: N/A. WALL MOTION: Normal. LV SIZE: Normal. 79 mL. TID / TCD: None; 0.9 LVEF: Normal. Calculated EF 65%. SUMMARY: Myocardial perfusion imaging study is NORMAL. CONCLUSION: 1. Normal nuclear medicine myocardial perfusion scan. Dictated by: Chaitanya Corado M.D. on 10/27/2023 at 16:34 Approved by: Chaitanya Corado M.D. on 10/27/2023 at 16:43
--- NOTE | 2023-10-27 08:30 | PC.NURSE ---
Nursing Note Cardiac Stress Test Reviewed: Medication, allergies and patient history reviewed. Stress Test: [ x] Patient tolerated stress test well. [ ] Patient unable to tolerate walking on treadmill. Switched to Lexiscan stress test. [ x] No chest pain noted per patient [ ] Chest pain that resolved prior to leaving stress lab. [ ] No dyspnea noted. [x ] Dyspnea that resolved prior to leaving stress lab. [x ] Patient left stress lab asymptomatic and hemodynamically stable. [ ] Patient taken to the Emergency Room due to non-resolving symptoms following stress test. [x ] Patient achieved target heart rate. [ ] Patient unable to achieve target heart rate. [ ] Aminophylline administered as reversal agent to Lexiscan (Regadenoson). [ ] Nitro administered. Nursing Comments:
--- NOTE | 2023-10-27 15:09 | P.STRESS_ITS ---
Stress Test Stress Test Requesting physician: Kirby Hernandez Procedure: Exercise Cardiolite stress test General Information: Reason for Stress Test: Chest pain Cardiac History and Risk Factors: History of CAD. Father from [place]. Resting 12 - Lead Electrocardiogram: Rate & rhythm: Sinus bradycardia at a rate of 53. [place]: Normal T-waves: Mildly upright to flattened T waves in aVL ST-segments: Normal Stress Test: Protocol: Jong protocol was followed, with injection of Cardiolite once target heart rate was achieved. Exercise capacity: Good exercise capacity. Total exercise time of 8 minutes 21 seconds reached Jong stage 3 at 3.4 MPH, 14% grade, & 10.1 METs. Blood pressure: Initial: 128.68, Maximum: 170/60 Rate & rhythm: Patient remained in sinus rhythm during the exercise and recovery portions of the study.? The maximum heart rate was 139, which was 87% of the maximum predicted heart rate. ST-segments & T-waves: At peak exercise, there was questionable 1mm ST segment downsloping in the inferolateral leads, but there was too much artifact and not 3 beats in a row to definitively call it. T-waves in aVL inverted during exerc ise and resumed mild upright orientation by the end of recovery. Patient response/symptoms: Patient complained of dyspnea. Interpretation: Non-diagnostic stress test based on questionable inferolateral changes at beak exercise and T-wave changes in aVL. No reproducible chest pain. Cardiolite imaging interpretation will be reported separately. Clinical correlation required.?
== END 2023-10-27 06:11 | disposition home or self-care (01) ==
PROVIDERS: PCP Family Medicine; Visit Provider Family Medicine
DX: R07.9 Chest pain, unspecified (principal)
CPT/HCPCS: 78452; 93017; A9500

== ENCOUNTER 2024-11-03 07:16 | Outpatient (OUT) | payer OTHER, SELFPAY ==
--- OUTSIDE RECORDS SUMMARY | 2024-11-03 07:21 | XMS_ITS | CCD ---
Author Organization [facility] CliniSymt Care Team Providers Care Cuprous Chloride Operator Name Role Phone PHYSICIAN, DEFAULT Unavailable Unavailable PHYSICIAN, DEFAULT Unavailable Unavailable HOY, MICHAEL Unavailable Unavailable PHYSICIAN, DEFAULT Unavailable Unavailable PHYSICIAN, DEFAULT Unavailable Unavailable HOY, MICHAEL Unavailable Unavailable DAKOTA, LOLA E Unavailable Unavailable HOY, MICHAEL Unavailable Unavailable DAKOTA, LOLA E Unavailable Unavailable HOY MICHAEL Unavailable Unavailable HOY, DR RODRIGUEZ Admitting [...] Unavailable HOY, DR RODRIGUEZ Primary Care Unavailable MOUKARBELRAFFY Attending Unavailable Allergies Allergy Classification Reported Allergen(s) Allergy Type Date of Onset Reaction(s) Facility (1 source) acetaminophen Drug Allergy 08-15-2009 [facility] Repository (3 sources) Penicillins; Translations: [PENICILLINS] Drug allergy (disorder) 08-15-2009 [facility] Repository (2 sources) Acetaminophen; Translations: [ACETAMINOPHEN] Drug Allergy 01-22-2015 [facility] Repository (1 source) Metoprolol; Translations: [METOPROLOL TARTRATE] Drug Allergy 03-02-2015 [facility] Repository Problems Active Problems Problem Classification Problem Date Documented Date Episodic/Chronic Coronary atherosclerosis and other heart disease (2 sources) 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; Translations: [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] Onset: 09-05-2024 Chronic Coronary atherosclerosis and other heart disease (2 sources) Presence of coronary angioplasty implant and graft; Translations: [Presence of coronary angioplasty implant and graft] Onset: 09-05-2024 Episodic Disorders of lipid metabolism (2 sources) Mixed hyperlipidemia; Translations: [Mixed hyperlipidemia] Onset: 09-05-2024 Chronic Essential hypertension (2 sources) Essential (primary) hypertension; Translations: [Essential (primary) hypertension] Onset: 09-05-2024 Chronic Unclassified (1 source) Unknown / UNK(Unknown) Onset: [...] Test Name Value Interpretation Reference Range Facility Office Visiton 09-05-2024 Follow-up visit [id number] Ford Romeo 1960 M Date Provider Department Center 09/05/2024 RAFFY HOOD [facility] Family History Problem Relation Age of Onset Stroke Mother Coronary artery disease Mother Other Mother Heart attack Father Family Status - Relation Status Age at Mother Father Level of Service:54373 MT OFFICE/OUTPATIENT NEW MODERATE MDM 45 MINUTES Normal [facility] GLYCOHEMOGLOBIN A1Con 2020 ADA RECOMMENDATION ADA THERAPEUTIC TARGET 6.0 - 7.0 ACTION SUGGESTED > 7.0 Normal [facility] Comment on above: Performed By: #### A 1C #### [facility] [address] [address] [address] Therese Loera Glucose [Mass/Vol] 131 mg/dL Normal [facility] Comment on above: Performed By: #### A 1C #### [facility] [address] [address] [address] Therese Loera HbA1c (Bld) [Mass fraction] 6.2 % Critically high <=6.0 [facility] Comment on above: Performed By: #### A 1C #### [facility] [address] [address] [address] Therese Loera LIPID PROFILEon 11-05-2020 CHOL-HDL RATIO NORM SEE BELOW Normal [facility] Comment on above: Result Comment: 3.3 - 4.4 LOW RISK 4.4 - 7.1 AVERAGE RISK 7.1 - 11.0 MODERATE RISK >11.0 HIGH RISK Performed By: #### L IPID #### [facility] [address] [address] [address] Therese Loera Cholesterol [Mass/Vol] 148 mg/dL Normal <=200 [facility] Comment on above: Performed By: #### L IPID #### [facility] [address] [address] [address] Therese Loera Cholesterol in HDL [Mass/Vol] 42 mg/dL Normal [facility] Comment on above: Performed By: #### L IPID #### [facility] [address] [address] [address] Therese Loera Cholesterol in LDL [Mass/Vol] 89.8 mg/dL Normal [facility] Comment on above: Performed By: #### L IPID #### [facility] [address] [address] [address] Therese Loera Cholesterol.total/C holesterol in HDL [Mass ratio] 3.5 {ratio} Normal [facility] Comment on above: Performed By: #### L IPID #### [facility] [address] [address] [address] Therese Loera HDL NORMAL > or = 60 mg/dl - LO W CARDIOVASCULAR RISK <40 mg/dl - HIGH CARDIOVASCULAR RISK Normal [facility] Comment on above: Performed By: #### L IPID #### [facility] [address] [address] [address] Therese Loera LDL CALC NORMAL SEE BELOW Normal [facility] Comment on above: Result Comment: <100 mg/dl OPTIMAL 100 - 129 mg/dl NEAR OR ABOVE OPTIMAL 130 - 159 mg/dl BORDERLINE HIGH 160 - 189 mg/dl HIGH >190 mg/dl VERY HIGH Performed By: #### L IPID #### [facility] [address] [place] [address] Dr. Therese Loera Triglyceride [Mass/Vol] 81 mg/dL Normal <=150 [facility] Comment on above: Performed By: #### L IPID #### [facility] [address] [place] [address] Dr. Therese Loera VLDL CALC 16.2 mg/dL Normal [facility] Comment on above: Performed By: #### L IPID #### [facility] [address] [place] [address] Dr. Therese Loera COVID-19 PCRon 12-28-2019 SARS-CoV-2 (COVID-19) RNA KOJO+probe Ql (Unsp spec) Not detected Normal Not Detected [facility] Comment on above: Result Comment: This nucleic acid amplification test was developed and its performance characteristics determined by [employer]. Nucleic acid amplification tests include PCR and [...] assay. Performed By: #### C VDPCR #### [facility] [address] [place], [place] [address] Roberto Sanchez Coding Summary.on 11-11-2019 Coding Summary. CODING DATE: 11/11/2019 FINAL [facility] STATUS: Home (Routine DC) PAYOR: Medical Chauncey ADMIT DX: REASON FOR VISIT DX: Z01.812 [...] Appiah CphT Date Saved: 11/11/2019 03:57 pm [facility] Coding Summary.on 10-28-2019 Coding Summary. CODING DATE: 10/28/2019 FINAL [facility] STATUS: Home (Routine DC) PAYOR: Medical Chauncey APC DESCRIPTION 5311 Level 1 Lower GI Procedures ADMIT DX: REASON FOR VISIT DX: Z12.11 Encounter for screening for malignant neoplasm of colon FINAL DX: PRINCIPAL: Z12.11 Encounter for screening for malignant neoplasm of colon SECONDARY: I25.10 Atherosclerotic heart disease of sob[place] coronary artery without angina pectoris Z79.82 custodial (current) use of aspirin PYMT PROC APC STAT DESCRIPTION DOCTOR NAME DATE 37938 5311 T Colonoscopy, flexible; Manish TINAJERO MD 10/21/2019 diagnostic, including collection of specimen(s) by brushing or washing, when performed (separate procedure) 93120 Anesthesia for lower Anne JrMacario Mustafa DO 10/21/2019 intestinal endoscopic procedures, endoscope introduced distal to duodenum; screening colonoscopy NOTE: The code number assigned matches the documented diagnosis and / or procedure in the patient's chart. However, the narrative phrase printed from the coding software may appear abbreviated, or result in slightly different terminology. Revised Coded By: Maria Dolores Alba Revised Date Saved: 10/28/2019 12:57 pm [facility] IntraOperative Documentson 0 10-27-2019 IntraOperative Documents [id number]# 1.00CD:127 [facility] Postoperative Documentson Postoperative Documents [id number]# 1.00CD:127 Normal [facility] Main OR Intraoperative Recor don 10-25-2019 Main OR Intraoperative Record IntraOp Document Type FT Summary Primary Physician: Manish TINAJERO MD Finalized Date/Time: 10/25/19 07:07:35 Pt. Name: OUSMANEFORD/Sex: 1960 Male Med Rec #: [id number] Physician: Manish TINAJERO MD Financial #: [id number] Pt. Type: O Room/Bed: / Admit/Disch: 10/21/19 09:20:40 - 10/21/19 23:59:59 Institution: Case Times FT Entry 1 Patient Times In Room 10/21/19 10:32:00 Out Room 10/21/19 10:58:00 Procedure Times Start 10/21/19 10:38:00 Stop 10/21/19 10:56:00 Anesthesia Times Start 10/21/19 10:32:00 Stop 10/21/19 10:58:00 Time at [place] 10/21/19 10:49:00 Last Modified By: Joanna MARTINES, Jo Galvin 10/21/19 10:58:28 General Comments: 10/25/2019 Chart opened to [facility] and send charges Janusz Santiago COMPLIANCE ADMINISTRATOR Case Attendance FT Entry 1 Entry 2 Entry 3 Case Attendee Leslie Quevedo MD, Manish Marshall RN, Jo Galvin Role Performed Anesthesiologist Surgeon - Primary Air Support Control Officer - Primary Meter Readers Supervisor Time In 10/21/19 10:32:00 10/21/19 10:32:00 10/21/19 10:32:00 Time Out 10/21/19 10:58:00 10/21/19 10:58:00 10/21/19 10:58:00 Procedure COLONOSCOPY(.) COLONOSCOPY(.) COLONOSCOPY(.) Comments Dr. Anne supervising Dr. Hinson supervising procedure. procedure. Last Modified By: Joanna MARTINES, Jo Marshall RN, Jo Marshall RN, Jo Galvin 10/21/19 10:58:29 10/21/19 10:58:29 10/21/19 10:58:29 Entry [...] No Time Out Leslie Quevedo, Given Participants Manish TINAJERO MD, Schaffer RN, Kara N, McClain CST, Kimberly A Time Out Complete 10/21/19 [...] Procedure Yes Primary Surgeon Manish TINAJERO MD Start 10/21/19 10:38:00 Stop 10/21/19 10:56:00 Anesthesia Type [...] and tissue Entry 1 Skin Integrity Intact, [place], Warm, and Skin Abnormality No Dry Outcomes [...] Pillow Unde (more content not included)... Normal [facility] Colonoscopy Procedure Report on 10-21-2019 Colonoscopy [...] condition. Manish Tinajero M.D. gls Dictated: 10/21/2019 #[id number] Typed: 10/21/2019 #[id number] cc: Nargis Yost M.D. [facility] Consenton 10-21-2019 Consent [id number]# 1.00CD:127 [facility] Consent for Treatmenton Consent for Treatment [id number]#1 .00CD:127 [facility] Discharge Instructionson Discharge Instructions [id number]# 1.00CD:127 [facility] Inpatient Patient Summaryon 10-21-2019 Inpatient Patient Summary [address] [place] [id number] [facility] Clinical Discharge Instructions PERSON INFORMATION Name: FORD ROMEO [facility]#:[id number] PHYSICIANS Admitting Physician: Manish TINAJERO MD Attending Physician: Manish TINAJERO MD PCP: Michael Hernandez MD Discharge Diagnosis: Encounter for screening for colorectal malignant neoplasm Comment: PATIENT EDUCATION INFORMATION Instructions: Medication Leaflets: Follow up: With: Address: When: Manish TINAJERO [address] [place] [address], [facility] [address] [address] Business (1) , only if needed MEDICATION [...] Tablets By Mouth every day. Comment: Normal [facility] IntraOperative Documentson 0 10-21-2019 IntraOperative Documents [id number]# 1.00CD:127 Normal [facility] IntraOperative Documents [id number]# 1.00CD:127 Normal [facility] Main OR PACU I Recordon Main OR PACU I Record PACU Phase I Document Type FT Summary Primary Physician: Manish TINAJERO MD Finalized Date/Time: 10/21/19 15:32:50 Pt. Name: FORD ROMEO/Sex: 1960 Male Med Rec #: [id number] Physician: Manish TINAJERO MD Financial #: [id number] Pt. Type: O Room/Bed: / Admit/Disch: 10/21/19 [...] 10/21/19 15:30 Jenny Jeffery RN 10/21/19 15:32 [facility] Main OR Preoperative Recordo n 10-21-2019 Main OR Preoperative Record Holding Area Document Type FT Summary Primary Physician: Manish TINAJERO MD Finalized Date/Time: 10/21/19 09:51:42 Pt. Name: FORD ROMEO/Sex: 1960 Male Med Rec #: [id number] Physician: Manish TINAJERO MD Financial #: [id number] Pt. Type: O Room/Bed: / Admit/Disch: 10/21/19 [...] completed prep yesterday and remained NPO since midnight/BOBBI KHALIL Finalized By: Jo Marshall RN Document Signatures Signed By: Jo Marshall RN 10/21/19 09:51 Normal [facility] Monitor Recordon 10-21-2019 Monitor Record [id number]# 1.00CD:127 Normal [facility] Outpatient Surgery Discharge Instructionon 10-21-2019 Outpatient Surgery Discharge Instruction [address] [address] Patient Discharge Instructions PERSON INFORMATION Name: FORD [...] J, have received the attached patient education materials/instruction s and have verbalized understanding: May we do a follow up call? Yes No I was present when discharge instructions were given Patient Signature Date Clinican/Nurse Signature Date Follow up: With: Address: When: Manish [address], [address], [facility] [address] [place] [address] Business (1) , only if needed Pharmacy Information: Thank you for choosing [facility] HERE ARE THE MEDICATION CHANGES THAT OCCURRED [...] every day. PATIENT EDUCATION INFORMATION Instructions: Normal [facility] Patient Education - Texton 0 10-21-2019 Patient Education - Text [facility] Progress Note-Physicianon Progress Note-Physician Patient: FORD ROMEO [...] without diagnosis of hypertension / SNOMED CT 5250472787 / Confirmed Impotence / SNOMED CT 9686708048 / Confirmed Diabetes mellitus type 2 / SNOMED CT 890946227 / Confirmed Coronary artery disease / SNOMED CT 5307646949 / Confirmed Osteoarthritis of hip / SNOMED CT 171028295 / Confirmed Screening for malignant neoplasm of colon / SNOMED CT 263399485 / Confirmed Rectal bleeding / SNOMED CT 019688969 / Confirmed Depression / SNOMED CT 71243005 / Confirmed Eczema / SNOMED CT 88003271 / Confirmed Occult blood in stools / SNOMED CT 92646084 / Confirmed Physical Examination Vital Signs 10/21/2019 [...] noted. Plan Transfer/ Discharge: Condition stable. Normal [facility] Comment on above: Result Comment: Elec [...] history: Placement of stent in cardiac conduit ([id number]) on 02/16/2009 at 48 Years. Cervical discectomy (509159172). Colonoscopy (439285991). Hip replacement (4140677849). Lumbar discectomy (490181829). Social History Social & Psychosocial Habits Alcohol 09/13/2018 Risk Assessment: Denies Alcohol Use Substance Abuse 09/13/2018 Risk Assessment: Denies Substance Abuse Tobacco 09/30/2019 Tobacco Use: Never (less than 100 in l . Physical Examination Respiratory: Lungs are clear to auscultation. Cardiovascular: Regular rhythm. Plan [place] [employer] (ASA) physical status classification: Class III. Anesthetic Preoperative Plan Anesthesia: General. . Anesthetic plan, risks, benefits, and alternatives discussed with the patient and/or family. Patient verbalized understanding. [facility] Comment on above: Result Comment: Elec tronically Signed By: Macario Anne Jr., DO.br\Date and Time Signed: 10/21/19 07:42 EDT Priority Order-Bessy 2019 Priority Order-STAT Comment Invalid Interpretation Code [facility] Comment on above: Result Comment: Rece ived Performed at: [facility] [address] [place], [place] [id number] MD Patito Pierre Performed By: #### S ARS-CoV-2, KOJO, [id number] ####[facility] [address] [place] [address] SARS-CoV-2, NAAon 10-15-2019 SARS-CoV-2 (COVID-19) RNA KOJO+probe Ql (Resp) Not detected Invalid Interpretation Code Not Detected [facility] Comment on above: Result Comment: This test was developed and its performance characteristics determined by [employer]. This test has not been FDA cleared [...] detected) result in this assay. Performed at: [facility] [address] [facility] [place] [id number] MD Patito Pierre Performed By: #### S ARS-CoV-2, KOJO, [id number] ####[facility] [address] [place] [address] Consenton 10-04-2019 Consent [id number] .00CD:127 [facility] Facesheeton 10-03-2019 Facesheet [id number]#1 .00CD:127 [facility] Physician Orderon 10-03-2019 Physician Order [id number] .00CD:127 [facility] Provider Letter FTMCon 10-02 Provider Letter [facility] Michael Hernandez [address] [place] [address] Re: FORD ROMEO Date of : 1960 Thank you for your referral of Ford Romeo who was seen on consultation on 09/30/2019 for screening colonoscopy. I have enclosed my consultation notes for your review. Sincerely, Manish Tinajero MD General Surgery [facility] Ambulatory Clinical Summaryo n 09-30-2019 Ambulatory Clinical Summary {[id number]}CD:[id number] [facility] Patient Educationon 09-30-19 20 Patient Education Exercise [...] Document Reviewed: 03/07/2011 ExitCare? Patient Information ?2013 [employer]. Normal [facility] Physician Referralon 020 Physician Referral [id number] .00CD:127 Normal [facility] Basic Metabolic Panelon 10-18 BUN/Creatinine Ratio 15 mg/mg Normal [facility] Calcium 8.6 mg/dL Normal 8.5-10.6 [facility] Chloride 106 mmol/L Normal 98-107 [facility] CO2 30 mmol/L Normal 21-32 [facility] Creatinine 0.96 mg/dL Normal 0.55-1.30 [facility] Glucose mass conc 160 mg/dL High 74-106 [facility] Potassium molar conc 4.5 mmol/L Normal 3.5-5.1 [facility] Sodium 141 mmol/L Normal 136-145 [facility] Urea nitrogen 14 mg/dL Normal 7-18 [facility] CBC with Differentialon 10-18 Basophils Auto #/vol (Bld) 0.0 thou/mcL Normal 0.0-0.1 [facility] Basophils/100 WBC Auto (Bld) 0.9 % Normal 0.2-1.4 [facility] Diff Method AUTOMATED DIFFERENTIAL Normal [facility] Eosinophils 0.1 thou/mcL Normal 0.0-0.5 [facility] Eosinophils/100 leukocytes 2.6 % Normal 0.6-7.9 [facility] Erythrocyte distribution width Auto Ratio (RBC) 13.6 % Normal 12.3-17.0 [facility] Erythrocytes (RBC) 4.56 x(10)6/mcL Normal 3.73-5.50 [facility] Hematocrit (HCT) 41.4 % Normal 33.3-45.7 [facility] Hemoglobin mass conc (Bld) 13.9 g/dL Normal 11.4-15.9 [facility] Lymphocytes 1.5 thou/mcL Normal 1.0-3.0 [facility] Lymphocytes/100 leukocytes 29.8 % Normal 16.0-43.5 [facility] MCH 30.5 Picograms Normal 24.3-33.2 [facility] MCHC mass conc (RBC) 33.5 g/dL Normal 32.5-35.8 [facility] MCV 90.8 fL Normal 73.7-95.5 [facility] Monocytes 0.3 thou/mcL Normal 0.3-1.0 [facility] Monocytes/100 leukocytes 5.7 % Normal 4.5-12.5 [facility] Neutrophils 3.0 thou/mcL Normal 1.8-7.8 [facility] Neutrophils/100 WBC Auto (Bld) 61.0 % Normal 43.0-76.6 [facility] Platelet mean volume (PMV) 8.1 fL Normal 7.5-11.2 [facility] Platelets 200 thou/mcL Normal 159-386 [facility] WBC (Leukocytes) 5.0 thou/mcL Normal 3.6-11.2 [facility] Partial Thromboplastin Time (aPTT)on 11-14-2016 aPTT 34 Sec Normal 24.4-37.5 [facility] Prothrombin Timeon 201 7 INR Coag RelTime (Bld) 1.0 {INR} Normal 0.8-1.2 [facility] Comment on above: Result Comment: IVY PERKINS THE INDUCTION PHASE OF ORAL ANTICOAGULATION, THE INR MAY NOT REFLECT THE ANTICOAGULANT STATUS OF THE PATIENT. THERAPEUTIC RANGES FOR INR'S ARE: MOST CLINICAL SITUATIONS: INR 2.0-3.0 MECHANICAL PROSTHETIC VALVES: INR 2.5-3.5 CRITICAL: INR 5.0 Prothrombin time (PT) Coag time (PPP) 11.2 Sec Normal 9.4-12.5 [facility] Urinalysis with Microscopic Automaticon 11-14-2016 Bilirubin Urine Negative Normal NEG [facility] Nitrite Urine Negative Normal NEG [facility] Urine, clarity CLEAR Normal CLER [facility] Urine, color YELLOW Normal YEL [facility] Urine, glucose presence Negative Normal NEG [facility] Urine, hemoglobin presence Negative Normal NEG [facility] Urine, ketones presence Negative Normal NEG [facility] Urine, leukocytes in sedmiment Negative Normal NEG [facility] Urine, microscopic observation of sediment NONE SEEN Normal [facility] Urine, pH 5.5 [pH] Normal 5.0-7.5 [facility] Urine, protein Negative Normal NEG [facility] Urine, specific gravity >1.030 High 1.005-1.030 [facility] Urobilinogen Urine 0.2 mg/dL Normal 0.0-1.9 [facility] Basic Metabolic Panelon BUN/Creatinine Ratio 18 mg/mg Normal [facility] Calcium 9.0 mg/dL Normal 8.5-10.6 [facility] Chloride 104 mmol/L Normal 98-107 [facility] CO2 28 mmol/L Normal 21-32 [facility] Creatinine 0.91 mg/dL Normal 0.55-1.30 [facility] Glucose mass conc 102 mg/dL Normal 74-106 [facility] Potassium molar conc 4.9 mmol/L Normal 3.5-5.1 [facility] Sodium 143 mmol/L Normal 136-145 [facility] Urea nitrogen 16 mg/dL Normal 7-18 [facility] CBC with Differentialon Basophils Auto #/vol (Bld) 0.1 thou/mcL Normal 0.0-0.1 [facility] Basophils/100 WBC Auto (Bld) 0.8 % Normal 0.2-1.4 [facility] Diff Method AUTOMATED DIFFERENTIAL Normal [facility] Eosinophils 0.1 thou/mcL Normal 0.0-0.5 [facility] Eosinophils/100 leukocytes 1.8 % Normal 0.6-7.9 [facility] Erythrocyte distribution width Auto Ratio (RBC) 13.5 % Normal 12.3-17.0 [facility] Erythrocytes (RBC) 5.42 x(10)6/mcL Normal 3.73-5.50 [facility] Hematocrit (HCT) 50.8 % High 33.3-45.7 [facility] Hemoglobin mass conc (Bld) 17.0 g/dL High 11.4-15.9 [facility] Lymphocytes 1.6 thou/mcL Normal 1.0-3.0 [facility] Lymphocytes/100 leukocytes 25.4 % Normal 16.0-43.5 [facility] MCH 31.4 Picograms Normal 24.3-33.2 [facility] MCHC mass conc (RBC) 33.5 g/dL Normal 32.5-35.8 [facility] MCV 93.8 fL Normal 73.7-95.5 [facility] Monocytes 0.4 thou/mcL Normal 0.3-1.0 [facility] Monocytes/100 leukocytes 6.3 % Normal 4.5-12.5 [facility] Neutrophils 4.2 thou/mcL Normal 1.8-7.8 [facility] Neutrophils/100 WBC Auto (Bld) 65.7 % Normal 43.0-76.6 [facility] Platelet mean volume (PMV) 8.8 fL Normal 7.5-11.2 [facility] Platelets 188 thou/mcL Normal 159-386 [facility] WBC (Leukocytes) 6.3 thou/mcL Normal 3.6-11.2 [facility] Partial Thromboplastin Time (aPTT)on 09-22-2016 aPTT 32 Sec Normal 24.4-37.5 [facility] Prothrombin Timeon 7 INR Coag RelTime (Bld) 1.0 {INR} Normal 0.8-1.2 [facility] Comment on above: Result Comment: IVY PERKINS THE INDUCTION PHASE OF ORAL ANTICOAGULATION, THE INR MAY NOT REFLECT THE ANTICOAGULANT STATUS OF THE PATIENT. THERAPEUTIC RANGES FOR INR'S ARE: MOST CLINICAL SITUATIONS: INR 2.0-3.0 MECHANICAL PROSTHETIC VALVES: INR 2.5-3.5 CRITICAL: INR 5.0 Prothrombin time (PT) Coag time (PPP) 11.2 Sec Normal 9.4-12.5 [facility] Urinalysis with Microscopic Automaticon 09-22-2016 Bilirubin Urine Negative Normal NEG [facility] Nitrite Urine Negative Normal NEG [facility] Urine, clarity CLEAR Normal CLER [facility] Urine, color YELLOW Normal YEL [facility] Urine, glucose presence Negative Normal NEG [facility] Urine, hemoglobin presence Negative Normal NEG [facility] Urine, ketones presence Negative Normal NEG [facility] Urine, leukocytes in sedmiment Negative Normal NEG [facility] Urine, pH 6.0 [pH] Normal 5.0-7.5 [facility] Urine, protein Negative Normal NEG [facility] Urine, specific gravity 1.025 Normal 1.005-1.030 [facility] Urobilinogen Urine 0.2 mg/dL Normal 0.0-1.9 [facility] Encounters Encounter Date Encounter Type Care Provider Facility Start: 09-05-2024 End: 09-05-2024 ambulatory RAFFY MONTGOMERY [facility] Start: 11-05-2020 End: 11-06-[address] MICHAEL HERNANDEZ Facility: Start: 09-12-[address] RAFFY Rutherford ility:[facility] Start: 07-11-[address] MICHAEL HERNANDEZ Facility : Start: 06-13-2020 End: 06-14-2020 ambulatory SIGIFREDO CHRISTENSEN Facility:[facility] Start: 05-23-2020 End: 05-24-[address] PIEDAD ACEVEDO Facility: Start: 12-26-2019 End: 12-27-[address] MICHAEL HERNANDEZ Facility: Start: 12-04-2016 End: 12-05-2016 Ambulatory DEFAULT PHYSICIAN Facility:[facility] Start: 11-17-2016 End: 11-18-2016 Ambulatory DEFAULT PHYSICIAN Facility:[facility] Start: 11-15-2016 End: 11-15-2016 Ambulatory LOLA DUNCAN Facility:[place] Start: 09-23-2016 End: 09-23-2016 Ambulatory LOLA DUNCAN Facility:[place] Payers Date Payer Category Payer Unknown [id number] 1960 Unknown [id number] 2.16.84 [id number] 1960 Unknown [id number] 2.16.84 [id number] 1958 Self-pay 1958 Self-pay [id number] 1958 Unknown [id number] Unknown Unknown [id number] 2.16.84 [id number] Unknown [id number] 2.16.84 [id number] Unknown [id number] 2.16.84 [id number] Unknown [id number] 2.16.84 [id number] Progress note 09-05-2024 Note Date & Type Note Facility 09-05-2024 Note [place] [facility] - [facility] Subjective Ford Romeo is a 64 y.o. year old male patient being seen to re-establish care for CAD. Had stress test in Oct 2023. No recent labs. Denies SOB, and palpitations. Does get some LLE edema in the heat. Patient Active Problem List Diagnosis CAD (coronary artery disease) Depressive disorder Eczema Elevated blood pressure reading without diagnosis of hypertension Essential hypertension Hip pain Occult blood in stools Osteoarthritis of hip Rectal hemorrhage Type 2 diabetes mellitus ([facility]) Family History Problem Relation Name Age of Onset Stroke Mother Coronary artery disease Mother Other (CABG) Mother Heart attack Father Social History Tobacco Use Smoking status: Never Smokeless tobacco: Never Substance Use Topics Alcohol use: Not Currently HPI Ford is seen as a new patient. He used to follow-up with us, last visit on 08/29/2020. He is a 64-year-old man with history of hypertension and hyperlipidemia. He has a history of coronary artery disease, he underwent cardiac catheterization on 08/15/2009 due to angina and abnormal stress test. 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 In addition there was moderate disease in the mid LAD and second diagonal branch of the LAD. This was left for medical therapy. Today he reports that he has been having symptoms of chest tightness that he feels with exertion mostly especially when doing yard work. He does not exert himself too much. He also reports having had the same tightness at rest while watching TV. Of the pain goes away on its own or with resting. He did not have to take sublingual nitroglycerin. Otherwise he denies shortness of breath. He has no palpitations. He has mild lower extremity edema occasionally. Review of Systems Cardiovascular: Positive for chest pain and leg swelling (intermittent). Objective Visit Vitals BP 132/70 (BP Location: Left arm, Patient Position: Sitting) Pulse 60 Ht 1.778 m (5' 10 ) Wt 84.4 kg (186 lb) SpO2 99% BMI 26.69 kg/m??? Smoking Status Never BSA 2.04 m??? Physical Exam Constitutional: Appearance: He is well-developed. He is not ill-appearing. HENT: Head: Normocephalic and atraumatic. Nose: Nose normal. Eyes: General: No scleral icterus. Pupils: Pupils are equal, round, and reactive to light. Neck: Thyroid: No thyromegaly. Vascular: No JVD. Cardiovascular: Rate and Rhythm: Normal rate and regular rhythm. Pulses: Radial pulses are 2+ on the right side and 2+ on the left side. Heart sounds: Normal heart sounds. No murmur heard. No friction rub. No gallop. Pulmonary: Effort: Pulmonary effort is normal. No respiratory distress. Breath sounds: Normal breath sounds. No wheezing or rales. Chest: Chest wall: No tenderness. Abdominal: General: Bowel sounds are normal. There is no distension. Palpations: Abdomen is soft. Tenderness: There is no abdominal tenderness. Musculoskeletal: General: No swelling. Cervical back: Neck supple. Skin: General: Skin is warm and dry. Neurological: General: No focal deficit present. Mental Status: He is alert and oriented to person, place, and time. Psychiatric: Mood and Affect: Mood normal. Behavior: Behavior is cooperative. Judgment: Judgment normal. Allergies Allergies Allergen Reactions Acetaminophen Other and Unknown Metoprolol Tartrate Other Fatigue Penicillins Rash and Unknown Medications Current Outpatient Medications: aspirin 81 mg chewable tablet, Chew 81 mg in the morning., Disp: , Rfl: meloxicam (Mobic) 15 mg tablet, Take 15 mg by mouth every other day., Disp: , Rfl: nitroglycerin (Nitrostat) 0.4 mg SL tablet, Place 0.4 mg under the tongue every 5 (five) minutes if needed., Disp: , Rfl: olmesartan (BENIcar) 40 mg tablet, Take 40 mg by mouth in the morning., Disp: , Rfl: ezetimibe (Zetia) 10 mg tablet, Take 1 tablet (10 mg) by mouth in the morning., Disp: 90 tablet, Rfl: 3 isosorbide mononitrate ER (Imdur) 30 mg 24 hr tablet, Take 1 tablet (30 mg) by mouth in the morning. Do not crush or chew., Disp: 90 tablet, Rfl: 3 rosuvastatin (Crestor) 10 mg tablet, Take 1 tablet (10 mg) by mouth at bedtime., Disp: 90 tablet, Rfl: 3 Recent Labs No visits with results within 6 Month(s) from this visit. Latest known visit with results is: [facility] Encounter on 09/08/2018 Component Date Value Ventricular Rate 09/08/2018 73 Atrial Rate 09/08/2018 73 MT Interval 09/08/2018 142 QRS DURATION 09/08/2018 96 QT Interval 09/08/2018 386 QTC CALCULATION(BEZET) 09/08/2018 425 P Duncan 09/08/2018 36 T Wave Duncan 09/08/2018 44 Diagnosis 09/08/2018 Value:Normal sinus rhythm with sinus arrhythmia Normal ECG When compared with ECG of 15-AUG-2009 16:56, No significant change was found Confirmed by STRESSDR. ([id number]), commercial production editor Kathi Garcia ([id number]) (more content not included)... [facility] History and physical note 10-21-2019 Note Date & Type Note Facility 10-21-2019 Note [id number] 1#[id number]:[id number] [facility] History and physical note 10-21-2019 Note Date & Type Note Facility 10-21-2019 Note Patient: DEEDEE ROMEO Age: 59 years Sex: Male : 1960 Associated Diagnoses: None Author: Manish TINAJERO MD Subjective no changes to [facility] Comment on above: Result Comment: Elec [...] available Patient Education Exercise to Lose Weight, [id number] Problem List/Past Medical History Ongoing Coronary artery [...] Use:., 09/30/2019 Family History Heart failure: Father. [facility] Comment on above: Result Comment: Elec tronically Signed By: GRABIEL MAHONEY, Manish Post\Date and Time Signed: 09/30/19 09:43 EDT Summary [...] section and content) DATE CREATED AUTHOR 08/11/2017 [facility] DATE CREATED AUTHOR AUTHOR'S ORGANIZ ATION 08/12/2017 [facility] DATE CREATED AUTHOR AUTHOR'S ORGANIZ ATION 06/23/2020 [facility] DATE CREATED AUTHOR AUTHOR'S ORGANIZ ATION 11/06/2020 [facility] DATE CREATED AUTHOR AUTHOR'S ORGANIZ ATION 09/06/2024 [facility] FOR RECORDS PERTAINING TO PATIENTS WHO [...] BE BASED ON THE PRIMARY CLINICAL RECORDS. [facility] [employer] [facility]. provides no warranty or guarantee of the accuracy or completeness of information in this document.
--- NOTE | 2024-11-03 08:00 | CA_ITS ---
Patient Name: FORD ROMEO MR#: [id number] : 1960 Exam Date: 11/03/2024 Ordering Doctor: DR RAFFY BARNES M.D. ECHOCARDIOGRAM REPORT PROCEDURE: CA ECHO DOPPLER COMPLETE INDICATIONS: Chest pain COMPARISON: None. DESCRIPTION: COMPLETE ECHOCARDIOGRAM Real-time transthoracic echocardiography with 2D, M-mode, spectral and color flow Doppler performed. QUALITY: Technical quality was good. LEFT VENTRICLE: Normal chamber size. Borderline left ventricular hypertrophy. Global left ventricular systolic function is normal. LV EF: Estimated left ventricular ejection fraction is 60-65%. DIASTOLIC: Normal diastolic function. ATRIAL SEPTUM: LEFT ATRIUM: Normal chamber size. RIGHT ATRIUM: Normal chamber size. RIGHT VENTRICLE: Normal chamber size. Normal right ventricular systolic function. TRICUSPID VALVE: Normal mobility and thickness. No stenosis with no regurgitation. No evidence of pulmonary hypertension. Unable to calculate RSVP due to lack of measurable Tricuspid regurgitation. MITRAL VALVE: Normal mobility and thickness. No evidence of mitral valve stenosis. There is no mitral annular calcification. Trivial mitral regurgitation. AORTIC VALVE: Normal trileaflet appearance. Mildly calcified aortic valve. Normal leaflet mobility. No evidence of aortic valve stenosis. Mild aortic regurgitation. AORTIC ROOT: Normal diameter and appearance measuring 3.2 cm. The ascending aorta is normal in size measuring 3.1 cm. PULMONIC VALVE: Normal thickness and mobility. No stenosis. Trivial regurgitation. PERICARDIUM: No evidence of pericardial effusion. IVC: Collapses with inspiration. Mildly dilated measuring 2.3 cm. PLEURA: CONCLUSION: 1. The left ventricle is normal in size with normal systolic function. Estimated LVEF is 60 to 65%. 2. Normal right ventricular size and systolic function. 3. Normal diastolic function. 4. Mild aortic regurgitation. 5. Unable to assess right-sided pressures due to lack of measurable tricuspid regurgitation. Adult Echocardiography Procedure Report Left Ventricle LVEDD (3.7 - 5.6 cm): 4.48 cm LVESD (2.2 - 4.0 cm): 2.64 cm LVIVS thickness (0.6 - 1.2 cm): 1.03 cm LVPW thickness (0.5 - 1.0 cm): 1.13 cm e': 0.13 m/s E - e': 6.63 LVOT Max Gradient: 4.07 mm[Hg] LVOT Area (cm2): 1.01 m/s Peak Velocity (LVOT): 1.01 m/s Mean Velocity (LVOT): 0.69 m/s LVOT Diameter 2.06 cm Left Ventricular Ejection Fraction: 60-65 % Left Atrium LA Volume Index (2D A2C): 26.49 ml/m2 Left Atrium Systolic Dimension: 3.77 cm Mitral Valve MV E to A Ratio: 1.22 Mitral Valve A-Wave Peak Velocity: 0.72 m/s Mitral Valve E-Wave Peak Velocity: 0.88 m/s Right Ventricle RV Internal Diastolic Dimension: 3.62 cm Aorta AO Root Diam: 3.17 cm Ascending Ao Diam: 3.10 cm Aortic Valve AoV Area (Peak Dmitriy): 2.39 cm2, 2.39 cm2 AoV Area (VTI): 2.44 cm2, 2.44 cm2 Deceleration Sac: 1.89 m/s2 Pressure Half-Time: 640.31 ms Peak Velocity(Antegrade Flow): 1.40 m/s Peak Gradient(Antegrade Flow): 7.87 mm[Hg] Mean Velocity(Antegrade Flow): 0.93 m/s Mean Gradient(Antegrade Flow): 4.07 mm[Hg] Velocity Time Integral: 31.87 cm Tricuspid Valve Pulmonic Valve Mean Gradient: 3.34 mm[Hg], 2.74 mm[Hg] Mean Velocity: 0.85 m/s, 0.76 m/s Peak Velocity: 1.20 m/s Peak Gradient: 6.20 mm[Hg], 5.32 mm[Hg] Right Atrium Right Atrium Systolic Pressure: 35.17 ml, 35.17 ml Dictated by: Raffy Barnes M.D. on 11/03/2024 at 21:03 Approved by: Raffy Barnes M.D. on 11/03/2024 at 21:06
--- NOTE | 2024-11-03 08:55 | NM_ITS ---
Patient Name: FORD ROMEO MR#: [id number] : 1960 Exam Date: 11/03/2024 Ordering Doctor: DR RAFFY MONTGOMERY M.D. RADIOLOGY REPORT PROCEDURE: NM ZENON PERF SPECT REST STR COMPARISON: None. INDICATIONS: STATUS POST INSERTION OF DRUG ELUTING CORONARY ARTERY STENT, CAD TECHNIQUE: Exam Description: Stress/Rest one day protocol gated SPECT Rest Imagin.9 mCi Tc-99m Cardiolite IV on 11/03/2024 Stress Imaging 31.6 mCi Tc-99m Cardiolite IV on 11/03/2024 Exercise Protocol: Jong Heart Rate (bpm): Rest: 49 Max: 144 PMHR: 91 Blood Pressure: Rest: 124/7 Max: 182/70 Exercise Time: Minutes: 9 Seconds: 32 Stage Reached: Stage: 4 Mets 11.8 Symptoms: Rest and peak stress ECG findings were pending, and the exercise portion of the study was pending per attending physician [facility]. For more details, please see separate cardiac stress test report. FINDINGS: QUALITY OF STUDY: Good PERFUSION DEFECT: LOCATION: N/A SIZE: N/A SEVERITY: N/A TYPE: N/A WALL MOTION: Normal wall motion LV SIZE: 86 mL. TID / TCD: 0.8 LVEF: Calculated EF 66%. SUMMARY: Myocardial perfusion imaging study is normal CONCLUSION: 1. Myocardial perfusion is normal 2. Global left ventricular systolic function is normal; EF 66% 3. No significant transient ischemic dilatation Dictated by: Kathrine Potts M.D. on 11/04/2024 at 08:47 Approved by: Kathrine Potts M.D. on 11/04/2024 at 08:50
--- NOTE | 2024-11-03 10:57 | PC.NURSE ---
Nursing Note Cardiac Stress Test Reviewed: Medication, allergies and patient history reviewed. Stress Test: [x ] Patient tolerated stress test well. [ ] Patient unable to tolerate walking on treadmill. Switched to Lexiscan stress test. [x ] No chest pain noted per patient [ ] Chest pain that resolved prior to leaving stress lab. [ ] No dyspnea noted. [x ] Dyspnea that resolved prior to leaving stress lab. [x ] Patient left stress lab asymptomatic and hemodynamically stable. [ ] Patient taken to the Emergency Room due to non-resolving symptoms following stress test. [x ] Patient achieved target heart rate. [ ] Patient unable to achieve target heart rate. [ ] Aminophylline administered as reversal agent to Lexiscan (Regadenoson). [ ] Nitro administered. Nursing Comments:Pt had Cardio Lite test done. No chest pain noted. Pt had SOB that resolved within 3 minutes of rest. Pt ambulated to cafeteria for breakfast prior to second set of images.
--- NOTE | 2024-11-04 16:18 | PM.STRESS ---
Stress Test Stress Test Requesting physician: RAFFY MONTGOMERY Procedure: Treadmill nuclear stress test General Information: Reason for Stress Test: [Chest pain] Cardiac History and Risk Factors: [History of coronary artery disease, hypertension and hyperlipidemia] Resting 12 - Lead Electrocardiogram: Resting twelve-lead EKG shows sinus bradycardia, heart rate 94 bpm, otherwise normal EKG. Resting blood pressure 124/70 mmHg. Patient was exercised according to standard Jong protocol and he was able to finish 9 minutes and 32 seconds consistent with stage IV and achieving 11.8 METS and max heart rate of 144 bpm which represents 91% of age-predicted maximum heart rate and peak blood pressure 182/70 mmHg. Exercise was terminated secondary to achievement of target heart rate. Patient did not experience any chest, neck, jaw, or arm discomfort throughout the test, he became short of breath at peak exercise. Patient was monitored for 8 minutes into recovery phase with heart rate back to 67 bpm and blood pressure to 140/64 mmHg. Patient developed about 1-11/2mm upsloping ST depression in inferior and anterolateral leads which resolved quickly into recovery phase with quick drop in his heart rate to 76 bpm within 1 minute of recovery, ST became downsloping during recovery phase and gradually resolved Stress Test: Protocol: [Jong protocol] Exercise Capacity: [Very good] Blood Pressure Response: [Appropriate] Rhythm: [Sinus rhythm, no arrhythmia] ST - Response: [1 to 1-1/2 mm upsloping depression] Patient Response: [No chest pain at peak exercise but he became short of breath] Interpretation: Maximal stress test Very good exercise tolerance Baseline sinus bradycardia but appropriate heart rate response to exercise Appropriate blood pressure response to exercise The stress test is positive for exercise-induced ischemic EKG changes. There was no exercise-induced arrhythmia or chest pain Myocardial perfusion nuclear images result is reported separately Fahad Guallpa MD [facility]
== END 2024-11-03 07:17 | disposition home or self-care (01) ==
PROVIDERS: PCP Family Medicine; Visit Provider Internal Medicine Interventional Cardiology
DX: Z00.00 Encounter for general adult medical examination without abnormal findings (principal); Z12.5 Encounter for screening for malignant neoplasm of prostate; I25.118 Atherosclerotic heart disease of native coronary artery with other forms of angina pectoris; Z95.5 Presence of coronary angioplasty implant and graft; E78.2 Mixed hyperlipidemia
CPT/HCPCS: 36415; 78452; 80053; 80061; 83036; 83525; 84436; 84443; 84481; 84550; 85025; 93017; 93306; A9500; G0103

== ENCOUNTER 2024-11-03 07:24 | Outpatient (OUT) | payer OTHER, SELFPAY ==
--- OUTSIDE RECORDS SUMMARY | 2024-11-03 07:28 | XMS_ITS | CCD ---
Author Organization [facility] CliniSymd Care Team Providers Care Communications Designer Name Role Phone PHYSICIAN, DEFAULT Unavailable Unavailable [...] HOY, DR RODRIGUEZ Attending Unavailable HOY, DR RODRIGUZE Primary Care Unavailable MOUKARBELRAFFY Attending Unavailable Allergies Allergy Classification Reported Allergen(s) Allergy Type Date of Onset Reaction(s) Facility (1 source) acetaminophen Drug Allergy 08-15-2009 [facility] Repository (3 sources) Penicillins; Translations: [PENICILLINS] Drug allergy (disorder) 08-15-2009 [facility] Repository (2 sources) Acetaminophen; Translations: [ACETAMINOPHEN] Drug Allergy 01-22-2015 [facility] [place] [facility] Repository (1 source) Metoprolol; Translations: [METOPROLOL TARTRATE] Drug Allergy 03-02-2015 [facility] Repository Problems Active Problems Problem Classification Problem Date Documented Date Episodic/Chronic Coronary atherosclerosis and other heart disease (2 sources) Atherosclerotic heart disease of [place] coronary artery with other forms of angina pectoris; Translations: [Atherosclerotic heart disease of [place] coronary artery with other forms of angina [...] Range Facility Office Visiton 09-05-2024 Follow-up visit [id number] Ford Romeo 1960 M Date Provider Department Center 09/05/2024 RFAFY HOOD [facility] Family History Problem Relation Age of Onset Stroke Mother Coronary artery disease Mother Other Mother Heart attack Father Family Status - Relation Status Age at Mother Father Level of Service:69568 CT OFFICE/OUTPATIENT NEW MODERATE MDM 45 MINUTES Normal [facility] GLYCOHEMOGLOBIN A1Con 2020 ADA RECOMMENDATION ADA THERAPEUTIC TARGET 6.0 - 7.0 ACTION SUGGESTED > 7.0 Normal [facility] Comment on above: Performed By: #### A 1C #### [facility] [place] [facility] [address] [address] [address] Therese Loera Glucose [Mass/Vol] 131 mg/dL Normal [facility] Comment on above: Performed By: #### A 1C #### [facility] [place] [facility] [address] [address] [address] Therese Loera HbA1c (Bld) [Mass fraction] 6.2 % Critically high <=6.0 [facility] Comment on above: Performed By: #### A 1C #### [facility] [place] [facility] [address] [address] [address] Therese Loera LIPID PROFILEon 11-05-2020 CHOL-HDL RATIO NORM SEE BELOW Normal [facility] Comment on above: Result Comment: 3.3 - 4.4 LOW RISK 4.4 - 7.1 AVERAGE RISK 7.1 - 11.0 MODERATE RISK >11.0 HIGH RISK Performed By: #### L IPID #### [facility] [place] [facility] [address] [address] [address] Therese Loera Cholesterol [Mass/Vol] 148 mg/dL Normal <=200 [facility] Comment on above: Performed By: #### L IPID #### [facility] [place] [facility] [address] [address] [address] Therese Loera Cholesterol in HDL [Mass/Vol] 42 mg/dL Normal [facility] Comment on above: Performed By: #### L IPID #### [facility] [place] [facility] [address] [address] [address] Therese Loera Cholesterol in LDL [Mass/Vol] 89.8 mg/dL Normal [facility] Comment on above: Performed By: #### L IPID #### [facility] [place] [facility] [address] [address] [address] Therese Loera Cholesterol.total/C holesterol in HDL [Mass ratio] 3.5 {ratio} Normal [facility] Comment on above: Performed By: #### L IPID #### [facility] [place] [facility] [address] [address] [address] Therese Loera HDL NORMAL > or = 60 mg/dl - LO W CARDIOVASCULAR RISK <40 mg/dl - HIGH CARDIOVASCULAR RISK Normal [facility] Comment on above: Performed By: #### L IPID #### [facility] [place] [facility] [address] [address] [address] Therese Loera LDL CALC NORMAL SEE BELOW Normal [facility] Comment on above: Result Comment: <100 mg/dl OPTIMAL 100 - 129 mg/dl NEAR OR ABOVE OPTIMAL 130 - 159 mg/dl BORDERLINE HIGH 160 - 189 mg/dl HIGH >190 mg/dl VERY HIGH Performed By: #### L IPID #### [facility] [place] [facility] [address] [place] [address] Dr. Therese Loera Triglyceride [Mass/Vol] 81 mg/dL Normal <=150 [facility] [place] [facility] Comment on above: Performed By: #### L IPID #### [facility] [place] [facility] [address] [place] [address] Dr. Therese Loera VLDL CALC 16.2 mg/dL Normal [facility] [place] [facility] Comment on above: Performed By: #### L IPID #### [facility] [place] [facility] [address] [place] [address] Dr. Therese Loera COVID-19 PCRon 12-28-2019 SARS-CoV-2 (COVID-19) RNA KOJO+probe Ql (Unsp spec) Not detected Normal Not Detected [facility] [place] [facility] Comment on above: Result Comment: This nucleic acid amplification test was developed and its performance characteristics determined by [employer]. Nucleic acid amplification tests include PCR and [...] assay. Performed By: #### C VDPCR #### [facility] [place] [facility] [address] [place], [place] [address] Roberto Sanchez Coding Summary.on 11-11-2019 Coding Summary. CODING DATE: 11/11/2019 FINAL [facility] STATUS: Home (Routine DC) PAYOR: [facility] [place] ADMIT DX: REASON FOR VISIT DX: Z01.812 [...] Appiah CphT Date Saved: 11/11/2019 03:57 pm [facility] Coding Summary.on 10-28-2019 Coding Summary. CODING DATE: 10/28/2019 FINAL [facility] STATUS: Home (Routine DC) PAYOR: [employer] [place] APC DESCRIPTION 5311 Level 1 Lower GI Procedures ADMIT DX: REASON FOR VISIT DX: Z12.11 Encounter for screening for malignant neoplasm of colon FINAL DX: PRINCIPAL: Z12.11 Encounter for screening for malignant neoplasm of colon SECONDARY: I25.10 Atherosclerotic heart disease of [place] coronary artery without angina pectoris Z79.82 detention (current) use of aspirin PYMT PROC APC STAT DESCRIPTION DOCTOR NAME DATE 57448 5311 T Colonoscopy, flexible; Manish TINAJERO MD 10/21/2019 diagnostic, including collection of specimen(s) by brushing or washing, when performed (separate procedure) 29618 Anesthesia for lower Anne JrMacario Mustafa DO [...] Alba Revised Date Saved: 10/28/2019 12:57 pm [facility] IntraOperative Documentson 0 10-27-2019 IntraOperative Documents [id number]# 1.00CD:127 [facility] Postoperative Documentson Postoperative Documents [id number] 1.00CD:127 Normal [facility] Main OR Intraoperative Recor don 10-25-2019 Main OR Intraoperative Record IntraOp Document Type FT Summary Primary Physician: Manish TINAJERO MD Finalized Date/Time: 10/25/19 07:07:35 Pt. Name: OUSMANEFORD/Sex: 1960 Male Med Rec #: [id number] Physician: Manish TINAJERO MD Financial #: [id number] Pt. Type: O Room/Bed: / Admit/Disch: 10/21/19 09:20:40 - 10/21/19 23:59:59 Institution: Case Times FT Entry 1 Patient Times In Room 10/21/19 10:32:00 Out Room 10/21/19 10:58:00 Procedure Times Start 10/21/19 10:38:00 Stop 10/21/19 10:56:00 Anesthesia Times Start 10/21/19 10:32:00 Stop 10/21/19 10:58:00 Time at [place] 10/21/19 10:49:00 Last Modified By: Joanna MARTINES, Jo Galvin 10/21/19 10:58:28 General Comments: 10/25/[address] [facility] and send charges Janusz Santiago TIE BUYER Case Attendance FT Entry 1 Entry 2 Entry 3 Case Attendee Leslie Quevedo MD, Manish Marshall RN, Jo Galvin Role Performed Anesthesiologist Surgeon - Primary Auto Tech - Primary Conflicts Analyst Time In 10/21/19 10:32:00 10/21/19 10:32:00 10/21/19 [...] Class 2 - Clean-Contaminated Last Modified By: oJ Marshall RN 10/21/19 10:56:13 General Case Data [...] and tissue Entry 1 Skin Integrity Intact, [place], Warm, and Skin Abnormality No Dry Outcomes [...] Pillow Unde (more content not included)... Normal [facility] Colonoscopy Procedure Report on 10-21-2019 Colonoscopy Procedure [...] condition. Manish Tinajero M.D. gls Dictated: 10/21/2019 #[id number] Typed: 10/21/2019 #[id number] cc: Nargis Yost M.D. [facility] Consenton 10-21-2019 Consent [id number]# 1.00CD:127 [facility] Consent for Treatmenton Consent for Treatment [id number] .00CD:127 [facility] Discharge Instructionson Discharge Instructions [id number]# 1.00CD:127 [facility] Inpatient Patient Summaryon 10-21-2019 Inpatient Patient Summary [place] [id number] [facility] Clinical Discharge Instructions PERSON INFORMATION Name: FORD ROMEO [facility]#:[id number] PHYSICIANS Admitting Physician: Manish TINAJERO MD Attending Physician: Manish TINAJERO MD PCP: Michael Hernandez MD Discharge Diagnosis: Encounter for screening for colorectal malignant neoplasm Comment: PATIENT EDUCATION INFORMATION Instructions: Medication Leaflets: Follow up: With: Address: When: Manish TINAJERO [address] [place] [address], [facility] [address] [place] [phone] Business (1) , only if needed MEDICATION [...] Tablets By Mouth every day. Comment: Normal [facility] IntraOperative Documentson 0 10-21-2019 IntraOperative Documents [id number]# 1.00CD:127 Normal [facility] IntraOperative Documents [id number]# 1.00CD:127 Normal [facility] Main OR PACU I Recordon Main OR PACU I Record PACU Phase I Document Type FT Summary Primary Physician: Manish TINAJERO MD Finalized Date/Time: 10/21/19 15:32:50 Pt. Name: FORD ROMEO/Sex: 1960 Male Med Rec #: [id number] Physician: Manish TINAJERO MD Financial #: [id number] Pt. Type: O Room/Bed: / Admit/Disch: 10/21/19 [...] 10/21/19 15:30 Jenny Jeffery RN 10/21/19 15:32 [facility] Main OR Preoperative Recordo n 10-21-2019 Main OR Preoperative Record Holding Area Document Type FT Summary Primary Physician: Manish TINAJERO MD Finalized Date/Time: 10/21/19 09:51:42 Pt. Name: FORD ROMEO/Sex: 1960 Male Med Rec #: [id number] Physician: Manish TINAJERO MD Financial #: [id number] Pt. Type: O Room/Bed: / Admit/Disch: 10/21/19 [...] By: Jo Marshall RN 10/21/19 09:51 Normal [facility] Monitor Recordon 10-21-2019 Monitor Record [id number]# 1.00CD:127 Normal [facility] Outpatient Surgery Discharge Instructionon 10-21-2019 Outpatient Surgery Discharge Instruction [address] [address] Patient Discharge Instructions PERSON INFORMATION [...] Follow up: With: Address: When: Manish [address], [facility] [address] [place] [address] Business (1) , only if needed Pharmacy Information: Thank you for choosing [facility] HERE ARE THE MEDICATION CHANGES THAT OCCURRED [...] every day. PATIENT EDUCATION INFORMATION Instructions: Normal [facility] Patient Education - Texton 0 10-21-2019 Patient Education - Text [facility] Progress Note-Physicianon Progress Note-Physician Patient: FORD [...] without diagnosis of hypertension / SNOMED CT 2881118933 / Confirmed Impotence / SNOMED CT 2939959053 / Confirmed Diabetes mellitus type 2 / SNOMED CT 800271819 / Confirmed Coronary artery disease / SNOMED CT 8450226632 / Confirmed Osteoarthritis of hip / SNOMED CT 636143689 / Confirmed Screening for malignant neoplasm of colon / SNOMED CT 023716304 / Confirmed Rectal bleeding / SNOMED CT 199659718 / Confirmed Depression / SNOMED CT 04464368 / Confirmed Eczema / SNOMED CT 32857883 / Confirmed Occult blood in stools / SNOMED CT 13568255 / Confirmed Physical Examination Vital Signs 10/21/2019 [...] noted. Plan Transfer/ Discharge: Condition stable. Normal [facility] Comment on above: Result Comment: Elec tronically [...] history: Placement of stent in cardiac conduit ([id number]) on 02/16/2009 at 48 Years. Cervical discectomy (301536861). Colonoscopy (147827518). Hip replacement (9942506055). Lumbar discectomy (961591122). Social History Social & Psychosocial Habits Alcohol 09/13/2018 Risk Assessment: Denies Alcohol Use Substance Abuse 09/13/2018 Risk Assessment: Denies Substance Abuse Tobacco 09/30/2019 Tobacco Use: Never (less than 100 in l . Physical Examination Respiratory: Lungs are clear to auscultation. Cardiovascular: Regular rhythm. Plan [place] [employer] Anesthesiologists (ASA) physical status classification: Class III. Anesthetic Preoperative Plan Anesthesia: General. . Anesthetic plan, risks, benefits, and alternatives discussed with the patient and/or family. Patient verbalized understanding. [facility] Comment on above: Result Comment: Elec tronically Signed By: Macario Anne Jr., DO.br\Date and Time Signed: 10/21/19 07:42 EDT Priority Order-Bessy 2019 Priority Order-STAT Comment Invalid Interpretation Code [facility] Comment on above: Result Comment: Rece ived Performed at: [facility] [address] [place], [place] [id number] MD Patito Pierre Performed By: #### S ARS-CoV-2, KOJO, [id number] ####[facility] [address] [place] [address] SARS-CoV-2, NAAon 10-15-2019 SARS-CoV-2 (COVID-19) RNA KOJO+probe Ql (Resp) Not detected Invalid Interpretation Code Not Detected [facility] Comment on above: Result Comment: This test was developed and its performance characteristics determined by [employer]. This test has not been FDA cleared [...] detected) result in this assay. Performed at: [facility] [address] [address] [facility] [place] [id number] MD Patito Pierre Performed By: #### S ARS-CoV-2, KOJO, [id number] ####[facility] [address] [place] [address] Consenton 10-04-2019 Consent [id number] .00CD:127 [facility] Facesheeton 10-03-2019 Facesheet [id number]#1 .00CD:127 [facility] Physician Orderon 10-03-2019 Physician Order [id number]#1 .00CD:127 [facility] Provider Letter FTMCon 10-02 Provider Letter [facility] Michael Hernandez [address] [place] [address] Re: FORD ROMEO Date of : 1960 Thank you for your referral of Ford Romeo who was seen on consultation on 09/30/2019 for screening colonoscopy. I have enclosed my consultation notes for your review. Sincerely, Manish Tinajero MD General Surgery [facility] Ambulatory Clinical Summaryo n 09-30-2019 Ambulatory Clinical Summary {[id number]}CD:[id number] [facility] Patient Educationon 09-30-19 20 Patient Education [...] Document Reviewed: 03/07/2011 ExitCare? Patient Information ?2013 [employer]. Normal [facility] Physician Referralon 020 Physician Referral [id number] .00CD:127 Normal [facility] Basic Metabolic Panelon 10-18 BUN/Creatinine Ratio 15 mg/mg Normal [facility] Calcium 8.6 mg/dL Normal 8.5-10.6 [facility] Chloride 106 mmol/L Normal 98-107 [facility] CO2 30 mmol/L Normal 21-32 [facility] Creatinine 0.96 mg/dL Normal 0.55-1.30 [facility] Glucose mass conc 160 mg/dL High 74-106 [facility] Potassium molar conc 4.5 mmol/L Normal 3.5-5.1 [facility] Sodium 141 mmol/L Normal 136-145 [facility] Urea nitrogen 14 mg/dL Normal 7-[address] [facility] CBC with Differentialon 10-18 Basophils Auto #/vol (Bld) 0.0 thou/mcL Normal 0.0-0.1 [facility] Basophils/100 WBC Auto (Bld) 0.9 % Normal 0.2-1.4 [facility] Diff Method AUTOMATED DIFFERENTIAL Normal [facility] Eosinophils 0.1 thou/mcL Normal 0.0-0.[address] [facility] Eosinophils/100 leukocytes 2.6 % Normal 0.6-7.9 [facility] Erythrocyte distribution width Auto Ratio (RBC) 13.6 % Normal 12.3-17.0 [facility] Erythrocytes (RBC) 4.56 x(10)6/mcL Normal 3.73-5.50 [facility] Hematocrit (HCT) 41.4 % Normal 33.3-45.7 [facility] Hemoglobin mass conc (Bld) 13.9 g/dL Normal 11.4-15.9 [facility] Lymphocytes 1.5 thou/mcL Normal 1.0-3.[address] [facility] Lymphocytes/100 leukocytes 29.8 % Normal 16.0-43.5 [facility] MCH 30.5 Picograms Normal 24.3-33.2 [facility] MCHC mass conc (RBC) 33.5 g/dL Normal 32.5-35.8 [facility] MCV 90.8 fL Normal 73.7-95.5 [facility] Monocytes 0.3 thou/mcL Normal 0.3-1.0 [facility] Monocytes/100 leukocytes 5.7 % Normal 4.5-12.5 [facility] Neutrophils 3.0 thou/mcL Normal 1.8-7.[address] [facility] Neutrophils/100 WBC Auto (Bld) 61.0 % Normal 43.0-76.6 [facility] Platelet mean volume (PMV) 8.1 fL Normal 7.5-11.2 [facility] Platelets 200 thou/mcL Normal 159-386 [facility] WBC (Leukocytes) 5.0 thou/mcL Normal 3.6-11.2 [facility] Partial Thromboplastin Time (aPTT)on 11-14-2016 aPTT 34 Sec Normal 24.4-37.5 [facility] Prothrombin Timeon 201 7 INR Coag RelTime (Bld) 1.0 {INR} Normal 0.8-1.2 [facility] Comment on above: Result Comment: IVY PERKINS THE INDUCTION PHASE OF ORAL ANTICOAGULATION, THE INR MAY NOT REFLECT THE ANTICOAGULANT STATUS OF THE PATIENT. THERAPEUTIC RANGES FOR INR'S ARE: MOST CLINICAL SITUATIONS: INR 2.0-3.0 MECHANICAL PROSTHETIC VALVES: INR 2.5-3.5 CRITICAL: INR 5.0 Prothrombin time (PT) Coag time (PPP) 11.2 Sec Normal 9.4-12.5 [facility] Urinalysis with Microscopic Automaticon 11-14-2016 Bilirubin Urine Negative Normal NEG [facility] Nitrite Urine Negative Normal NEG [facility] Urine, clarity CLEAR Normal [facility] Urine, color YELLOW Normal YEL [facility] Urine, glucose presence Negative Normal NEG [facility] Urine, hemoglobin presence Negative Normal NEG [facility] Urine, ketones presence Negative Normal NEG [facility] Urine, leukocytes in sedmiment Negative Normal NEG [facility] Urine, microscopic observation of sediment NONE SEEN Normal [facility] Urine, pH 5.5 [pH] Normal 5.0-7.5 [facility] Urine, protein Negative Normal NEG [facility] Urine, specific gravity >1.030 High 1.005-1.030 [facility] Urobilinogen Urine 0.2 mg/dL Normal 0.0-1.9 [facility] Basic Metabolic Panelon BUN/Creatinine Ratio 18 mg/mg Normal [facility] Calcium 9.0 mg/dL Normal 8.5-10.6 [facility] Chloride 104 mmol/L Normal 98-107 [facility] CO2 28 mmol/L Normal 21-32 [facility] Creatinine 0.91 mg/dL Normal 0.55-1.30 [facility] Glucose mass conc 102 mg/dL Normal 74-106 [facility] Potassium molar conc 4.9 mmol/L Normal 3.5-5.1 [facility] Sodium 143 mmol/L Normal 136-145 [facility] Urea nitrogen 16 mg/dL Normal 7-[address] [facility] CBC with Differentialon Basophils Auto #/vol (Bld) 0.1 thou/mcL Normal 0.0-0.1 [facility] Basophils/100 WBC Auto (Bld) 0.8 % Normal 0.2-1.4 [facility] Diff Method AUTOMATED DIFFERENTIAL Normal [facility] Eosinophils 0.1 thou/mcL Normal 0.0-0.[address] [facility] Eosinophils/100 leukocytes 1.8 % Normal 0.6-7.9 [facility] Erythrocyte distribution width Auto Ratio (RBC) 13.5 % Normal 12.3-17.0 [facility] Erythrocytes (RBC) 5.42 x(10)6/mcL Normal 3.73-5.50 [facility] Hematocrit (HCT) 50.8 % High 33.3-45.7 [facility] Hemoglobin mass conc (Bld) 17.0 g/dL High 11.4-15.9 [facility] Lymphocytes 1.6 thou/mcL Normal 1.0-3.[address] [facility] Lymphocytes/100 leukocytes 25.4 % Normal 16.0-43.5 [facility] MCH 31.4 Picograms Normal 24.3-33.2 [facility] MCHC mass conc (RBC) 33.5 g/dL Normal 32.5-35.8 [facility] MCV 93.8 fL Normal 73.7-95.5 [facility] Monocytes 0.4 thou/mcL Normal 0.3-1.0 [facility] Monocytes/100 leukocytes 6.3 % Normal 4.5-12.5 [facility] Neutrophils 4.2 thou/mcL Normal 1.8-7.[address] [facility] Neutrophils/100 WBC Auto (Bld) 65.7 % Normal 43.0-76.6 [facility] Platelet mean volume (PMV) 8.8 fL Normal 7.5-11.2 [facility] Platelets 188 thou/mcL Normal 159-386 [facility] WBC (Leukocytes) 6.3 thou/mcL Normal 3.6-11.2 [facility] Partial Thromboplastin Time (aPTT)on 09-22-2016 aPTT 32 Sec Normal 24.4-37.5 [facility] Prothrombin Timeon 7 INR Coag RelTime (Bld) 1.0 {INR} Normal 0.8-1.2 [facility] Comment on above: Result Comment: IVY PERKINS THE INDUCTION PHASE OF ORAL ANTICOAGULATION, THE INR MAY NOT REFLECT THE ANTICOAGULANT STATUS OF THE PATIENT. THERAPEUTIC RANGES FOR INR'S ARE: MOST CLINICAL SITUATIONS: INR 2.0-3.0 MECHANICAL PROSTHETIC VALVES: INR 2.5-3.5 CRITICAL: INR 5.0 Prothrombin time (PT) Coag time (PPP) 11.2 Sec Normal 9.4-12.5 [facility] Urinalysis with Microscopic Automaticon 09-22-2016 Bilirubin Urine Negative Normal NEG [facility] Nitrite Urine Negative Normal NEG [facility] Urine, clarity CLEAR Normal [facility] Urine, color YELLOW Normal YEL [facility] Urine, glucose presence Negative Normal NEG [facility] Urine, hemoglobin presence Negative Normal NEG [facility] Urine, ketones presence Negative Normal NEG [facility] Urine, leukocytes in sedmiment Negative Normal NEG [facility] Urine, pH 6.0 [pH] Normal 5.0-7.5 [facility] Urine, protein Negative Normal NEG [facility] Urine, specific gravity 1.025 Normal 1.005-1.030 [facility] Urobilinogen Urine 0.2 mg/dL Normal 0.0-1.9 [facility] Encounters Encounter Date Encounter Type Care Provider Facility Start: 09-05-2024 End: 09-05-2024 ambulatory RAFFY MONTGOMERY [facility] Start: 11-05-2020 End: 11-06-[address] MICHAEL [...] Start: 11-15-2016 End: 11-15-2016 Ambulatory LOLA DUNCAN [facility] Start: 09-23-2016 End: 09-23-2016 Ambulatory LOLA DUNCAN [facility] Payers Date Payer Category Payer Unknown [id number] 1960 Unknown [id number] 2.16.84 [id number] 1960 Unknown [id number] 2.16.84 [id number] 1958 Self-pay 1958 Self-pay [id number] 1958 Unknown [id number] Unknown Unknown [id number] 2.16.84 [id number] Unknown [id number] 2.16.84 [id number] Unknown [id number] 2.16.84 [id number] Unknown [id number] 2.16.84 [id number] Progress note 09-05-2024 Note Date & Type Note Facility 09-05-2024 Note [place] [facility] Subjective Ford Romeo is a 64 [...] hip Rectal hemorrhage Type 2 diabetes mellitus ([facility]) Family History Problem Relation Name Age of [...] Rate 09/08/2018 74 Atrial Rate 09/08/[address] Interval 09/08/2018 142 QRS DURATION 09/08/2018 96 QT Interval 09/08/2018 386 QTC CALCULATION(BEZET) 09/08/2018 425 P [place] 09/08/2018 36 T Wave [place] 09/08/2018 44 Diagnosis 09/08/2018 Value:Normal sinus rhythm with sinus arrhythmia Normal ECG When compared with ECG of 15-AUG-2009 16:56, No significant change was found Confirmed by STRESSDR. ([id number]), staff editor Kathi Garcia ([id number]) (more content not included)... [facility] History and physical note 10-21-2019 Note Date & Type Note Facility 10-21-2019 Note [id number] [id number] [facility] History and physical note 10-21-2019 Note Date & Type Note Facility 10-21-2019 Note Patient: DEEDEE ROMEO Age: 59 years Sex: Male : 1960 Associated Diagnoses: None Author: Manish TINAJERO MD Subjective no changes to H & P [facility] Comment on above: Result Comment: Elec tronically [...] available Patient Education Exercise to Lose Weight, [id number] Problem List/Past Medical History Ongoing Coronary artery [...] Use:., 09/30/2019 Family History Heart failure: Father. [facility] Comment on above: Result Comment: Elec tronically [...] and content) DATE CREATED AUTHOR 08/11/[address] [facility] DATE CREATED AUTHOR AUTHOR'S ORGANIZ ATION 08/12/2017 [facility] DATE CREATED AUTHOR AUTHOR'S ORGANIZ ATION 06/23/2020 [facility] DATE CREATED AUTHOR AUTHOR'S ORGANIZ ATION 11/06/2020 [facility] DATE CREATED AUTHOR AUTHOR'S ORGANIZ ATION 09/06/2024 [facility] FOR RECORDS PERTAINING TO PATIENTS WHO ARE [...] BE BASED ON THE PRIMARY CLINICAL RECORDS. [facility] [employer] [facility]. provides no warranty or guarantee of the accuracy or completeness of information in this document.
[2024-11-03 08:03] LABS: Hematocrit 45.8 % (42.0-54.0); Hemoglobin 16.0 g/dL (14.0-18.0); Immature Granulocytes Abs Auto 0.01 10^3/uL (0.00-0.03); Immature Granulocytes Pct Auto 0.2 % (0.0-0.5); Lymphocytes Absolute Auto 1.6 10^3/uL (1.2-3.8); Mean Corpuscular HGB Conc 34.9 g/dL (29.9-35.2); Mean Corpuscular Hemoglobin 32.3 pg (25.9-34.0); Mean Corpuscular Volume 92.5 fL (80.0-94.0); Platelet Count 197 10^3/uL (150-450); Red Blood Count 4.95 10^6/uL (4.70-6.10); White Blood Count 5.3 10^3/uL (4.0-11.0)
[2024-11-03 10:20] LABS: Alanine Aminotransferase 25 U/L (16-63); Albumin Globulin Ratio 1.1; Albumin Level 3.7 g/dL (3.4-5.0); Alkaline Phosphatase 78 U/L (46-116); Anion Gap 12.7; Aspartate Amino Transferase 22 U/L (15-37); Blood Urea Nitrogen 14.0 mg/dL (7.0-18.0); Calcium 9.1 mg/dL (8.5-10.1); Carbon Dioxide 27.7 mmol/L (21.0-32.0); Chloride 106 mmol/L (98-107); Estimated GFR (African America >60 (>=60 mL/min/1.73m^2); Estimated GFR (Non-African Ame >60 (>=60 mL/min/1.73m^2); Free T3 2.24 pg/mL (2.18-3.98); Globulin 3.5 g/dL; Glucose 163 mg/dL (74-106); Potassium 4.4 mmol/L (3.5-5.1); Sodium 142 mmol/L (136-145); Thyroid Stimulating Hormone 4.724 uIU/mL (0.358-3.740); Total Protein 7.2 g/dL (6.4-8.2); Uric Acid 4.8 mg/dL (3.5-7.2)
[2024-11-03 11:22] LABS: Cholesterol 158 mg/dL (<=200); HDL Cholesterol 41 mg/dL (40-60); Triglycerides 107 mg/dL (<=150); VLDL CHOLESTEROL 21.4 mg/dL
== END 2024-11-03 07:25 | disposition home or self-care (01) ==
PROVIDERS: PCP Family Medicine; Visit Provider Family Medicine
DX: Z00.00 Encounter for general adult medical examination without abnormal findings (principal); Z12.5 Encounter for screening for malignant neoplasm of prostate
CPT/HCPCS: 36415; 80053; 80061; 83036; 83525; 84436; 84443; 84481; 84550; 85025; G0103